=== PATIENT | female | born 1960 | race Caucasian/White ===

== ENCOUNTER 2016-12-02 18:26 | Inpatient (IN) | payer OTHER ==
[~2016-12-02] VITALS: Ht 167.6 cm; Wt 78.7 kg
[~2016-12-02 18:26] MED LIST: AMOX-366 PO; ASPI81TA3 PO; ATOR80TA77 PO; CLOP75TA28 PO; FUR20 PO; GABA-504 PO; GLPZ5T PO; INSU100V7 SUBQ; LACT1CAP44 PO; METO50TA3 PO; NITR0.4T SL; PANT40TA3 PO; SERT100T9 PO; SUCR1ORA PO
[2016-12-02 18:50] VITALS: BP 177/101; PULSE 122; RESP 18; O2SAT 97
--- NOTE | 2016-12-02 19:40 | ED.REPORT ---
HPI-Abd Pain F 40 and Over Date of Service Dec 02, 2016 ED Provider: Eric Capone DO Pt is a 55 y.o. female with an extensive medical hx including DM, CHF, NSTEMI, and stroke who presents to the ED c/o vomiting onset 4 days ago. She reports associated nausea, cough, chest pain, abdominal pain, diarrhea (resolved), and recent weight loss of 14lbs since onset. She denies flank pain and dysuria. She states that she thinks she has an ulcer. Nursing Notes Stated Complaint: NAUSEA/POSS ABT Chief Complaint: Female Abdominal Pain Nursing Notes Reviewed: Yes Allergies: Coded Allergies: insulin detemir (Verified Adverse Reaction, Severe, Nausea,Vomiting, ) Scheduled Aspirin Chew (Aspirin Chew) 81 Mg Tablet 81 MG PO DAILY Atorvastatin Calcium (Atorvastatin Calcium) 80 Mg Tablet 80 MG PO HS Furosemide (Furosemide) 20 Mg Tab 20 MG PO QAM Gabapentin (Gabapentin) 400 Mg Capsule 400 MG PO BID Glipizide (Glipizide) 5 Mg Tablet 5 MG PO BID Insulin Glargine (Lantus U100 Insulin Vial) 100 Unit/Ml Vial 15 UNIT SUBQ HS Ranitidine (Zantac) 150 Mg Tablet 150 MG PO BID Sertraline HCl (Sertraline) 100 Mg Tablet 150 MG PO QPM General Time Seen by MD: 19:39 Chief Complaint Vomiting moderate Hx Obtained From: Patient Arrived By: Walk-in Sudden in Onset?: Yes Onset Occurred: 4 days ago Symptom Duration: Since onset Location: : Diffuse Quality: Painful Severity: Current: Moderate Past Medical History Past Medical History Notes: Hospitalized 08/16/15 to 08/18/15: Chest pain in patient with history of CAD, s/p CARLA placement June 2015 - Troponin neg x2 - Stress test 08/16/2015; unremarkable; no evidence of ST-T changes, ischemia, or wall motion abnormalities - Tele monitoring; no events Past Medical History Peripheral neuropathy NSTEMI CVA- 2006 (March and August) DM2 insulin dependent - history of KDA depression/anxiety insomnia Reports: Congestive heart failure, Coronary artery disease, GERD, Hyperlipidemia , Hypertension, Stroke Reports: Depression, Renal failure Past Surgical History Cardiac Catheterization Hysterectomy R knee- arthroplasty Smoking History Former Smoker Social History Patient quit smoking cigarretes 1.5 years ago. She continues to smoke marijuana. Alcohol Use: Denies alcohol use Other Social History: Good social support, , Local resident Ambulatory Status Independent Review of Systems Respiratory: Reports: Non-productive cough Cardiovascular: Reports: Chest pain GI: Reports: Abdominal pain, Diarrhea, Nausea, Vomiting Female: Denies: Dysuria, Flank pain Complete sys rev & neg: except as marked. Endocrine: Reports: Weight loss Physical Exam Vital Signs Vital Signs (First) Date Time Temp Pulse Resp B/P Pulse Ox O2 Delivery O2 Flow Rate FiO2 12/02/16 18:50 36.3 122 18 177/101 97 Room Air Initial VS: Reviewed Head / Eyes: Atraumatic, Normocephalic Extremities: Vascular intact, Neuro intact Skin: Warm, Dry, No cyanosis Neurologic: Alert, Oriented, Nonfocal Psychiatric: Mood/affect normal, Behavior normal, Normal thought content General/Constitutional: Awake, Alert, Not toxic appearing Appearance / Presentation: Positive: Obese, Uncomfortable Mildly tremulous Respiratory / Chest: Atraumatic, Breath sounds NL, Breath sounds = bilat, No respiratory distress Cardiovascular: Regular rhythm, Heart sounds NL, Peripheral circulation NL Heart Rate / Rhythm: Positive: Tachycardia Abdomen: Atraumatic, Soft, No distention Tenderness/Guarding/Rebound: Positive: Tender diffuse Back: Atraumatic Interpretation & Diagnostics Lab Results Interpretation Result Diagram: 12/03/16 0415 12/03/16 0725 Test 12/02/16 19:22 12/02/16 20:50 12/02/16 21:48 Prothrombin Time 11.4sec (8.1-12.5) Prothromb Time International Ratio 1.06ratio D-Dimer 0.5mg/L (<0.50) Hemoglobin A1c 14.0% (4.8-5.6) Lactic Acid Level 2.0mmol/L (0.4-2.0) Magnesium Level 2.5mg/dL (1.6-2.6) Total Bilirubin 0.5mg/dL (0.0-1.2) Aspartate Amino Transf (AST/SGOT) 32U/L (0-50) Alanine Aminotransferase (ALT/SGPT) 28U/L (0-32) Alkaline Phosphatase 143U/L (25-150) Total Protein 8.4g/dL (6.4-8.4) Albumin 4.3g/dL (3.4-5.0) Lipase 26U/L (13-60) Thyroid Stimulating Hormone (TSH) 0.180uIU/mL (0.450-4.500) Ketones Positive (Negative) Urine Ketones Positivemg/dL (NEGATIVE) Hold Urine Received (Received) Point of Care Testing: Troponin elevated General Lab Results Interp 1: CBC - leukocytosis General Lab Results Interp 2: D-Dimer normal ECG Interpretation ECG Interpretation: Normal ST segment changes Time: 18:26 Interpreted by: ED physician Normal ECG Interpretation: Normal sinus rhythm Rhythm / Conduction: Tachycardia (rate of 120) CT Chest Interpretation IMPRESSION: 1. No acute pulmonary process. No evidence of pulmonary embolism. Dictated by: Donna Diamond M.D. on 12/02/2016 at 21:47 Approved by: Donna Diamond M.D. on 12/02/2016 at 21:49 CT Abd / Pelvis Interpretation IMPRESSION: 1. Diverticulosis. 2. Marked prominence lower uterine segment extending to the cervix. Mass lesion cannot be excluded. It is noted that appearance is similar, although slightly more prominent when compared to 05/04/16. Pelvic ultrasound may be obtained if clinically indicated. Dictated by: Donna Diamond M.D. on 12/02/2016 at 21:43 Approved by: Donna Diamond M.D. on 12/02/2016 at 21:46 Re-Eval/Medical Decision Med Decision/Clinical Course 55-year-old diabetic presents with abdominal pain. She is found to have non- STEMI, early diabetic ketoacidosis. CT of her got did not really show anything other than pelvic abnormalities and will need follow-up. Certainly no emergent surgical disease identified. PE study was negative as well. She is treated with fluids and insulin and beta collin. I consulted with cardiology and he recommended holding on the heparin for now. They recommended that we treat the underlying metabolic abnormalities and consider cardiology consultation if her troponins trend up. She was admitted to the progressive care unit in stable condition. Source of Hx: Old records Re-Evaluation/Progress : Time of Eval: 20:57 Re-Evaluation/Progress Note: Pt rechecked. Discussed lab results and plan for admit, pt understands and agrees with plan. Consultation #1: Referral / Consult Name: Philomena Brown MD Consulted With: Cardiology Call Returned at: 21:36 Note: Consulted with Dr. Brown, Cardiology. Her recommends pt not be given Heparin. Consultation #2: Referral / Consult Name: Jose Angel Cruz MD Call Returned at: 21:44 Lead Housekeeper: Will see patient, Agrees with eval, Agrees with plan, Accepts admit Note: Discussed pt condition and consult with Dr. Brown. Accepts admit. Counseled Regarding: Diagnosis, Lab results, Need for admission Discharge & Departure Primary Impression: Diabetic ketoacidosis Diabetes mellitus type: type 2 Diabetes mellitus complication detail: without coma Qualified Code: E13.10 - Other specified diabetes mellitus with ketoacidosis without coma Additional Impression: NSTEMI (non-ST elevated myocardial infarction) Disposition: ADMITTED TO HOSPITAL Discharge Condition All VS Reviewed: Yes Condition: Stable Referrals: Brigitte Nelson MD (PCP) Crit Care Except Billable Proc Time Spent: 30-74 minutes Services Performed: Patient management by me, Time spent at bedside, Reviewing test results, Reviewing imaging, Discussing patient care, Documentation in record Scribe Attestation Portions of this note were transcribed by Vidya Villatoro. I, Dr. Capone personally performed the history, physical exam and medical decision-making; I reviewed and confirmed the accuracy of the information in the transcribed note. Signed by : Ruperto Ruth, 12/02/16 and 2300. copies to: Brigitte Nelson MD, Todd P DO Dec 02, 2016 19:40 VIDYA VILLATORO Dec 02, 2016 19:46 Albumin 4.3g/dL (3.4-5.0) Lipase 26U/L (13-60) Thyroid Stimulating Hormone (TSH) 0.180uIU/mL (0.450-4.500) Troponin T 0.050ug/L (0.0-0.011) Ketones Positive (Negative) Hold Urine Received (Received) Point of Care Testing: Troponin elevated General Lab Results Interp 1: CBC - leukocytosis General Lab Results Interp 2: D-Dimer normal ECG Interpretation ECG Interpretation: Normal ST segment changes Time: 18:26 Interpreted by: ED physician Normal ECG Interpretation: Normal sinus rhythm Rhythm / Conduction: Tachycardia (rate of 120) CT Chest Interpretation IMPRESSION: 1. No acute pulmonary process. No evidence of pulmonary embolism. Dictated by: Donna Diamond M.D. on 12/02/2016 at 21:47 Approved by: Donna Diamond M.D. on 12/02/2016 at 21:49 CT Abd / Pelvis Interpretation IMPRESSION: 1. Diverticulosis. 2. Marked prominence lower uterine segment extending to the cervix. Mass lesion cannot be excluded. It is noted that appearance is similar, although slightly more prominent when compared to 05/04/16. Pelvic ultrasound may be obtained if clinically indicated. Dictated by: Donna Diamond M.D. on 12/02/2016 at 21:43 Approved by: Donna Diamond M.D. on 12/02/2016 at 21:46 Re-Eval/Medical Decision Source of Hx: Old records Re-Evaluation/Progress : Time of Eval: 20:57 Re-Evaluation/Progress Note: Pt rechecked. Discussed lab results and plan for admit, pt understands and agrees with plan. Consultation #1: Referral / Consult Name: Philomena Brown MD Consulted With: Cardiology Call Returned at: 21:36 Note: Consulted with Dr. Brown, Cardiology. Her recommends pt not be given Heparin. Consultation #2: Referral / Consult Name: Jose Angel Cruz MD Call Returned at: 21:44 Lead Housekeeper: Will see patient, Agrees with eval, Agrees with plan, Accepts admit Note: Discussed pt condition and consult with Dr. Brown. Accepts admit. Counseled Regarding: Diagnosis, Lab results, Need for admission Discharge & Departure Primary Impression: Diabetic ketoacidosis Diabetes mellitus type: type 2 Diabetes mellitus complication detail: without coma Qualified Code: E13.10 - Other specified diabetes mellitus with ketoacidosis without coma Disposition: ADMITTED TO HOSPITAL Discharge Condition All VS Reviewed: Yes Condition: Stable Referrals: Brigitte Nelson MD (PCP) Crit Care Except Billable Proc Time Spent: 30-74 minutes Services Performed: Patient management by me, Time spent at bedside, Reviewing test results, Reviewing imaging, Discussing patient care, Documentation in record Scribe Attestation Portions of this note were transcribed by Vidya Villatoro. I, Dr. Capone personally performed the history, physical exam and medical decision-making; I reviewed and confirmed the accuracy of the information in the transcribed note. Signed by : Ruperto Ruth, 12/02/16 and 2300. copies to: Brigitte Nelson MD, Todd P DO Dec 02, 2016 19:40 VIDYA VILLATORO Dec 02, 2016 19:46
[2016-12-02 19:44] LABS: BASOPHILS % (AUTO) 0.1 % (0-3); EOSINOPHILS % (AUTO) 0.1 % (0-5); MONOCYTES % (AUTO) 7.4 % (4-12); Mean Corpuscular Hemoglobin 26.6 pg (27.0-35.0); Mean Corpuscular Volume 77.7 fL (81-100); NEUTROPHILS % (AUTO) 83.8 % (40-74); Platelet Count 377 bil/L (150-400)
[2016-12-02] MEDS ORDERED: 0.9% Sodium Chloride 1,000 ML IV SCH (19:50)
[2016-12-02] MEDS: Ondansetron 2 mg/mL 2 mL Inj IVPUSH PRN ×2 (20:24→20:26)
[2016-12-02 20:29] LABS: Magnesium 2.5 mg/dL (1.6-2.6)
[2016-12-02] MEDS ORDERED: HYDROmorphone 0.5 mg/0.5 mL iSecure Syringe IVPUSH PRN (20:40)
[2016-12-02] MEDS ORDERED: Insulin Human REGular Inj 100 UNIT in 0.9% Sodium Chloride-Pha MIX 100 ML IV SCH ×2 (21:31→22:27)
[2016-12-02] MEDS ORDERED: Heparin 5,000 Unit/mL Inj IVPUSH ONE (21:35)
[2016-12-02] MEDS ORDERED: Nitroglycerin 2% 1 Gm Ointment TOPICAL ONE (21:35)
[2016-12-02] MEDS ORDERED: MeTOProlol 1 mg/mL 5 mL Inj IVPUSH SCH (21:35)
[2016-12-02] MEDS ORDERED: Heparin 25K Unit/500mL 0.45 NS 25,000 UNIT in IV Premix 1 EACH IV SCH (21:35)
[2016-12-02] MEDS ORDERED: Heparin 5,000 Unit/mL Inj IVPUSH PRN ×2 (21:35→22:00)
--- NOTE | 2016-12-02 21:48 | DRSVH ---
PROCEDURE: CT ABDOMEN AND PELVIS WITH CONTRAST ([id number]) INDICATIONS: chest pain, abd. pain, nonSTEMI,tachycardia TECHNIQUE: After the administration of intravenous contrast, 5 mm thick sections acquired from the diaphragm to the symphysis. 5 mm coronal and sagittal reformats were acquired. For radiation dose reduction, the following was used: automated exposure control, adjustment of mA and/or kV according to patient yumiko valverde COMPARISON: [facility], CT, CT ABD PELVIS WO CON, 05/04/2016, 11:54. FINDINGS: Image quality: Excellent. ABDOMEN: Lung bases: Lung bases are clear. Heart size is normal. Solid organs: Liver and spleen are normal in size and enhancement. Gallbladder is unremarkable. Bi liary system is non dilated. Pancreas enhances normally. No adrenal nodules. Kidneys demonstrate n ormal size and enhancement, without hydronephrosis. Small focal areas of low-attenuation are present within the kidneys bilaterally, unchanged, suggestive of cysts. Peritoneum and bowel: Bowel loops demonstrate normal wall thickness and caliber. No free fluid or a ir. Scattered diverticula are present without visualized inflammatory change. Nodes and vessels: No retroperitoneal or mesenteric adenopathy by size criteria. Aorta and inferior vena cava are normal in size. Miscellaneous: No ventral hernias. PELVIS: Genitourinary: Bladder wall thickness is normal. There is prominent fullness of the lower uterine s egment extending to the cervix. Miscellaneous: No inguinal hernias or adenopathy. Bones: No suspicious bony lesions. No vertebral body compression fractures. IMPRESSION: 1. Diverticulosis. 2. Marked prominence lower uterine segment extending to the cervix. Mass lesion cannot be excluded. I t is noted that appearance is similar, although slightly more prominent when compared to 05/04/16. Pel nathan ultrasound may be obtained if clinically indicated. Dictated by: Donna Diamond M.D. on 12/02/2016 at 21:43 Approved by: Donna Diamond M.D. on 12/02/2016 at 21:46
--- NOTE | 2016-12-02 21:50 | DRSVH ---
PROCEDURE: CT ANGIO CHEST PULMONARY EMBOLISM ([id number]) INDICATIONS: chest pain, abd. pain, nonSTEMI,tachycardia TECHNIQUE: After the administration of intravenous contrast, 2 mm thick sections acquired from the pulmonary api kirill to the posterior costophrenic angles. 3-dimensional maximum intensity projection (MIP) coronal a nd sagittal reformats were then acquired through the thorax. For radiation dose reduction, the follo wing was used: automated exposure control, adjustment of mA and/or kV according to patient size. COMPARISON: [facility], CT, CT CHEST WO CON, 08/16/2016, 9:39. FINDINGS: Image quality: Excellent. Pulmonary arteries: Pulmonary arteries are normal in size, and demonstrate no intraluminal filling d efects to suggest central pulmonary embolism. Lungs and pleura: Lungs are clear. No pleural effusions or pneumothorax. Central and peripheral ai rways are patent. Mediastinum: Heart size is normal, without pericardial effusion. No mediastinal or hilar adenopathy . Thoracic aorta is normal in caliber and enhancement. Esophagus is normal in caliber, without hiat al hernia. Bones and chest wall: No suspicious bony lesions. Ribs and thoracic spine appear intact throughout. Thyroid gland is unremarkable. No axillary or supraclavicular adenopathy. Abdomen: Visualized upper abdominal solid organs appear normal in the early arterial phase of enhanc ement. IMPRESSION: 1. No acute pulmonary process. No evidence of pulmonary embolism. Dictated by: Donna Diamond M.D. on 12/02/2016 at 21:47 Approved by: Donna Diamond M.D. on 12/02/2016 at 21:49
[2016-12-02] MEDS: 0.9% Sodium Chloride 1,000 ML IV SCH (21:57)
[2016-12-02] MEDS ORDERED: Atropine 1 mg/10 mL (Code) Syringe IVPUSH PRN (22:00)
[2016-12-02] MEDS ORDERED: Senna-Docusate 8.6-50 mg Tablet PO PRN (22:00)
[2016-12-02] MEDS ORDERED: Polyethylene Glycol (PEG) 17 Gm Powder PO PRN (22:00)
[2016-12-02] MEDS ORDERED: Alum-Mag Hydrox-Simeth 30 mL Suspension PO PRN (22:00)
[2016-12-02 22:13] LABS: INR 1.06 ratio
--- NOTE | 2016-12-02 22:51 | PCM.HPMED ---
Subjective Date of Service Dec 02, 2016 Primary Provider: Admitting Physician: Primary Care Physician: Brigitte Nelson MD Attending Physician: Chief Complaint: Abdominal Pain Chest pain Nausea Vomiting Diarrhea History of Present Illness: Patient is a 55 y.o F with medical history of DM insulin dependent, CHF, NSTEM s /p cardiac cath with stenting x2, and stroke with residual visual deficit, GERD (last EGD "years ago"), HTN. She presented to the Ed with 4 days of abdominal pain, nausea, vomiting, and 1 day history of chest pain. Patient stated that symptoms began with abdominal pain described as nausea and "feels like an ulcer ", localized to left upper quadrant, associated with vomiting without blood, diarrhea without blood or pus that has resolved one day ago, 14 lb weight loss, subjective fever, chills, generalized weakness (patient normally able to ambulate with cane). Patient denies blood in stool, mucus in stool, pain with BM , dysuria.Patient reported a friend has been sick with similar symptoms. Diarrhea improved with antidiarrheal and nausea improved with zofran in ED. Patient stated that chest pain began suddenly yesterday and continued onto today prompting ED visit. Patient describe pain as racing heart, localized to her left breast non radiating, associated with SOB, orthopnea, PND. She stated that chest pain is similar to episode when she had stents placed. Patient denies chest pressure, syncope, change in vision from baseline, headache. Administrative Support Technician Dr. Scott Review of Systems: A comprehensive review of systems was conducted with the patient and found to be negative except as above in the History of Present Illness. Allergies Coded Allergies: insulin detemir (Verified Adverse Reaction, Severe, Nausea,Vomiting, ) Home Medications Aspirin Chew (Aspirin Chew) 81 Mg Tablet 81 MG PO DAILY Atorvastatin Calcium (Atorvastatin Calcium) 80 Mg Tablet 80 MG PO HS Clopidogrel (Clopidogrel) 75 Mg Tablet 75 MG PO DAILY Furosemide (Furosemide) 20 Mg Tab 20 MG PO QAM Gabapentin (Gabapentin) 400 Mg Capsule 400 MG PO BIDWM with breakfast and lunch Glipizide (Glipizide) 5 Mg Tablet 5 MG PO BID Insulin Glargine (Lantus U100 Insulin Vial) 100 Unit/Ml Vial 15 UNIT SUBQ HS Lactobacillus Acidophilus (Acidophilus Lactobacillus) 1 Each Capsule 1 EACH PO BID Metoprolol Tartrate (Metoprolol Tartrate) 50 Mg Tablet 100 MG PO BID stop coreg Pantoprazole DR (Pantoprazole DR) 40 Mg Tablet.dr 40 MG PO BID Sertraline HCl (Sertraline) 100 Mg Tablet 150 MG PO QPM Sucralfate (Sucralfate) 1 Gm/10 Ml Oral.susp 1,000 MG PO QID Nitroglycerin SL (Nitrostat) 0.4 Mg Tab.subl 0.4 MG SL Q5MIN PRN PRN For Chest Pain [facility] Hospitalizations Hospitalized 08/16/15 to 08/18/15: Chest pain in patient with history of CAD, s/p CARLA placement June 2015 - Troponin neg x2 - Stress test 08/16/2015; unremarkable; no evidence of ST-T changes, ischemia, or wall motion abnormalities - Tele monitoring; no events Past medical Illnesses Peripheral neuropathy NSTEMI CVA- 2006 (March and August) DM2 insulin dependent - history of KDA depression/anxiety insomnia Reports: Congestive heart failure, Coronary artery disease, GERD, Hyperlipidemia , Hypertension, Stroke Reports: Depression, Renal failure Surgical History Cardiac Catheterization Hysterectomy R knee- arthroplasty Family History Patient is adopted and does not know medical history of biological relatives Social History Hx Alcohol Use: No Hx Substance Use: Yes (Marijuana- ) Smoking Status: Former Smoker (Quit three years ago with 60 pack year history) Exam Vital Signs Vital Sign - Last Date Time Temp Pulse Resp B/P Pulse Ox O2 Delivery O2 Flow Rate FiO2 12/02/16 18:50 36.3 122 18 177/101 97 Room Air Exam General: Patient is in moderate pain localized to abdomen, well-developed, well- nourished, appropriately interactive HEENT: Normocephalic, atraumatic. External ears without defect. EMOI deficit at baseline from stroke. Pupils equal, round, and reactive to light. Anicteric sclerae, moist conjunctivae, and no lid lag. Oropharynx free of erythema and cobble stoning with dry mucosa. Neck: Supple with full range of motion. No jugular venous distension. No bruits. No lymphadenopathy or thyromegaly. Cardiovascular: Tachycardic and rhythm with no murmurs, rubs, or gallops appreciated Pulmonary: bilateral expiratory wheezes, with no crackles,, or rhonchi. Normal respiratory effort with no use of accessory muscles. Abdomen: Bowel tones present. Soft, Diffuse tenderness with prominent tenderness over LUQ and LLQ, nondistended. No hepatosplenomegaly or masses appreciated. Back: no tenderness, no CVA tenderness Extremities: No clubbing, cyanosis, edema, or lymphadenopathy appreciated. Skin: Normal temperature, poor turgor, and texture; no rash, ulcers, or subcutaneous nodules appreciated. Neurological: Cranial nerves grossly intact to patient's baseline. Visual field deficit loss of peripheral vision and depth perception noted with overshooting/undershooting finger to nose. Normal muscle strength, tone, and bulk. Reflexes, coordination limited by visual field deficit, and sensory function within normal limits. mild gait impairment. Psychiatric: Normal mood and affect. Alert and oriented to person, place, and time. Lab and Diagnostics Result Diagram: 12/02/16192112/02/161921 X-Rays, CTs and MRIs CT Chest IMPRESSION: 1. No acute pulmonary process. No evidence of pulmonary embolism. Dictated by: Donna Diamond M.D. on 12/02/2016 at 21:47 Approved by: Donna Diamond M.D. on 12/02/2016 at 21:49 CT Abd / Pelvis IMPRESSION: 1. Diverticulosis. 2. Marked prominence lower uterine segment extending to the cervix. Mass lesion cannot be excluded. It is noted that appearance is similar, although slightly more prominent when compared to 05/04/16. Pelvic ultrasound may be obtained if clinically indicated. Dictated by: Donna Diamond M.D. on 12/02/2016 at 21:43 Approved by: Donna Diamond M.D. on 12/02/2016 at 21:46 12-lead ECG Rate 118 Sinus tachycardia Normal [place] LVH Anterior Q waves Multiple PACs in all leads No significant change from prior EKG Assessment & Plan Patient is a 55 y.o F with medical history of DM insulin dependent, CHF, NSTEM s /p cardiac cath with stenting x2, and stroke with residual visual deficit, GERD (last EGD "years ago"), HTN. Admitted for treatment of Abdominal pain, nausea, vomiting, NSTEMI, SREEDHAR 1. NSTEMI, acute - Patient at time of admit tachycardic, hypertensive, elevated troponin, c/o chest pain left sided, SOB, past history of cardiac stent, DMII, 60 pack year smoking history -ALEXA score 4 - Continue ASA 81 mg PO QD - Continue Plavix 75 mg PO QD - Continue home dose metoprolol - Start Lorsartan 5 mg BID - Start Atorvastatin 40 mg PO HS - Start Heparin Drip - Continue Tele 2. Hyperglycemic Hyperosmolar state, NDKA, acute - Blood glucose at admission 600, RR 18, + ketones, corrected NA 145, AG 32, LA 2.0 - Likely presentation of Hyperglycemic hyperosmolar state, with Lactic acidosis rather than DKA as patient does not clinically present with stigmata of DKA. - Continue IVF NS @ 100 mls/hr given 1 L bolus in ED, free water deficit calculated negative 1.6 L - Start Insulin drip per protocol, NON-DKA - ABG ordered, pending - Urine Ketones ordered - Once blood sugar normalize and AG closes will restart Lantus 8 units with medium correctional insulin scale - NPO after insulin drip started 3. Abdominal pain with nausea and vomiting - At time of exam patient is afebrile, active nauseous and dry heaving, WCT 14.8 - Abdominal/Pelvis CT showed uncertain lesion in uterus at cervix boarder - Abdominal US ordered - Continue IVF as above #2 - Zofran for NS - Stool studies ordered - Viral PCR ordered to r/o viral syndrome from URI 4. Acute on chronic Kidney disease - Prior history of Kidney disease - likely prerenal due to dehydration from vomiting and diarrhea - continue IVF NS as above #2 -UA ordered - Monitor I/O Chronic Conditions Peripheral neuropathy -Continue Gabapentin CVA- 2006 (March and August), presumed stable - Continue to monitor DM2 insulin dependent - history of DKA - Start Insulin drip as above #2 - Restart Lantus as above #2 depression/anxiety - Continue home medication insomnia - Melatonin 5 MG PO HS PRN Congestive heart failure - ECHO ordered Hypertension - Continue home med - Start Lisinopril as above #1 Hyperlipidemia, , Stroke GERD, - Protonix 40 mg IV QD Gi prophylaxis Coronary artery disease - Manage as above #1 CODE STATUS: DVT prophylaxis: Heparin Drip GI prophylaxis: Protonix Patient is admitted under inpatient status with expected length of stay greater than 2 midnights due to severity of presenting symptoms, risk of adverse event, and complexity of treatment plan. Attending Statement The patient was seen and examined together with Dr. Stover on 12/02 and I agree with the history, exam and plan as outlined in the note above. KIAN STOVER DO Dec 02, 2016 22:51 Jose Angel Cruz MD Dec 03, 2016 00:50
--- NOTE | 2016-12-02 22:59 | ABG ---
DateTimeAnalyzed 22:56:00 -_ pH ____7.349 - 7.350 7.450 pCO2 ___47.7__ -mmHg 35.0 45.0 pO2 ___67.1__ -mmHg 69.0 116 HCO3- ___25.6__ -mmol/L 22.0 26.0 ABE ____0.0__ -mmol/L -2.0 2.0 tHb ___13.2__ -g/dL O2Hb ___90.4__ -% COHb ____0.9__ -% MetHb ____1.0__ -% sO2 ___92.2__ -% FIO2 ___21.0__ -% Drawn By AF - Date/Time Notified____ 22:58:00 -_ Notified By ___Dr. Beia - B 762 -mmHg tO2 ___16.8__ -Vol% Dhruv test _Positive -
[2016-12-02 23:00] VITALS: BP 140/95; PULSE 115; RESP 16; O2SAT 95
[2016-12-02 23:12] VITALS: BP 160/91; PULSE 120; RESP 20; O2SAT 99
[2016-12-02] MEDS: Heparin 25K Unit/500mL 0.45 NS 25,000 UNIT in IV Premix 1 EACH IV SCH (23:12)
[2016-12-02] MEDS ORDERED: Pantoprazole 4 mg/mL 10 mL Inj IVPUSH ONE (23:25)
[2016-12-02] MEDS ORDERED: MeTOProlol 1 mg/mL 5 mL Inj IVPUSH PRN (23:28)
[2016-12-03] VITALS (12 sets, daily range): BP systolic 149–189; BP diastolic 88–105; PULSE 65–119; RESP 16–20; O2SAT 95–99
[2016-12-03] MEDS ORDERED: Sodium Chloride LOK Flush 10 mL Syringe IVFLUSH SCH (00:30)
[2016-12-03] MEDS: Sodium Chloride LOK Flush 10 mL Syringe IVFLUSH SCH ×3 (00:30→16:50)
[2016-12-03] MEDS: Ondansetron 2 mg/mL 2 mL Inj IVPUSH PRN ×3 (00:41→12:00)
[2016-12-03] MEDS: MetoCLOpramide 5 mg/mL 2 mL Inj IVPUSH PRN (03:38)
[2016-12-03] MEDS: Heparin 25K Unit/500mL 0.45 NS 25,000 UNIT in IV Premix 1 EACH IV SCH (04:25)
[2016-12-03 04:45] LABS: BASOPHILS % (AUTO) 0.1 % (0-3); EOSINOPHILS % (AUTO) 0 % (0-5); Mean Corpuscular Hemoglobin 26.5 pg (27.0-35.0); Mean Corpuscular Volume 79.3 fL (81-100); NEUTROPHILS % (AUTO) 69.6 % (40-74); Platelet Count 313 bil/L (150-400)
[2016-12-03 05:18] LABS: TROPONIN T 0.065 ug/L (0.0-0.011)
[2016-12-03] MEDS ORDERED: Glucose 40% Oral Gel 15 Gm Tube PO PRN (05:25)
[2016-12-03] MEDS ORDERED: Insulin GLARgine 100 Unit/mL Syringe SUBQ ONE (05:25)
[2016-12-03] MEDS ORDERED: 0.45% Sodium Chloride 250 ML in IV Bag 1 EACH IV ONE (05:30)
[2016-12-03] MEDS: Sucralfate 100 mg/mL 10 mL Suspension PO SCH ×4 (06:20→21:29)
--- NOTE | 2016-12-03 07:00 | NUR ---
Admit Pt arrived to [facility] RM 2008 from ED. PT able to self transfer from [facility] to to urinate. Pt steady on feet but states weakness. Pt started on NON DKA insulin gtt and continued on floor blood sugars check Q1 hour per protocol. No c/o CP or SOB. PT also started on Heparin gtt. Pt continues to have intermittent nausea and PRN medications given and effective for a time. VSS and Tele ST 100's
[2016-12-03] MEDS: Insulin LISPRO 300 Unit/3 mL Inj SUBQ SCH ×5 (08:00→21:27)
[2016-12-03] MEDS: 0.9% Sodium Chloride 1,000 ML IV SCH ×2 (10:27→21:38)
--- NOTE | 2016-12-03 13:41 | NUR ---
Social Work: Screening Data: Pt is a 55 y/o female admitted for non stemi hyperglycemia. Pt's PCP is Dr Nelson. Pt's insurance is listed as self pay. EMR reviewed, readmit score is 3. APARTMENT PROPERTY MANAGER met with pt at bedside, offered self pay resources. Pt states she has insurance through [employer] but that her will bring her card in. APARTMENT PROPERTY MANAGER inquired about AD, pt states she henry not have one but accepted info from APARTMENT PROPERTY MANAGER. No d/c planning needs identified at this time. APARTMENT PROPERTY MANAGER will continue to follow if needs arise. Assessment: Pt who is independent at baseline. Plan: Pt will d/c home via POV when medically stable. No d/c planning needs identified at this time. APARTMENT PROPERTY MANAGER will continue to follow if needs arise. CYNDY Gaxiola
[2016-12-03] MEDS ORDERED: RANI150T11 PO (13:50)
--- NOTE | 2016-12-03 14:14 | DRSVH ---
[facility] [address] [place] [address] Echocardiogram Report Name: LUI HI EStudy Date: Height: 66 in Hospital Exam Location: [facility] Weight: 166 lb Gender: Female BSA: 1.8 m2 : 1960 Age: 55 yrs BP: 149/88 mmHg Reason For Study: Chest pain Ordering Physician: HOSPITALIST [facility] Performed By: [facility] Referring Physician: KIAN STOVER Interpretation Summary Left ventricular wall thickness is mildly increased. Left ventricular systolic function is normal. The ejection fraction is estimated to be 55-60%. Compared to the prior exam, left ventricular function is moderately improved. There is moderate to severe hypokinesis of the basal inferior, basal inferolateral and mild hypokinesis along basal to mid anterolateral segments. The E/A ratio is reversed with an elevated E/E', suggesting impaired early relaxation of the left ventricle with possible increased filling pressures. The right ventricle is normal in size and function. Pulmonary artery pressures cannot be estimated because of the lack of a measurable TR jet velocity. The left atrium is mildly dilated. The right atrium grossly appears normal in size. There is no significant valvular heart disease. MR and TR have decreased since prior study. The aortic root is normal size. Procedure: A two-dimensional transthoracic echocardiogram with color flow and Doppler was performed. The study quality was technically adequate. A contrast injection of Definity was performed to improve assessment of LV function. Comparison is made with the echocardiogram of 05/03/16. The patient was in normal sinus rhythm during the exam. Left Ventricle: The left ventricle is normal in size. Left ventricular wall thickness is mildly increased. Left ventricular systolic function is normal. The ejection fraction is estimated to be 55-60%. Compared to the prior exam, left ventricular function is moderately improved. There is moderate to severe hypokinesis of the basal inferior, basal inferolateral and mild hypokinesis along basal to mid anterolateral segments. The E/A ratio is reversed with an elevated E/E', suggesting impaired early relaxation of the left ventricle with possible increased filling pressures. Right Ventricle: The right ventricle is normal in size and function. Atria: The left atrium is mildly dilated. The right atrium grossly appears normal in size. The interatrial septum is intact with no evidence for an atrial septal defect. Mitral Valve: The mitral valve leaflets appear borderline thickened, but open well. There is mild mitral annular calcification. There is mild mitral regurgitation. Aortic Valve: The aortic valve is grossly normal. There is no aortic valve stenosis. No aortic regurgitation is present. Tricuspid Valve: The tricuspid valve is not well visualized, but is grossly normal. Pulmonary artery pressures cannot be estimated because of the lack of a measurable TR jet velocity. Pulmonic Valve: The pulmonic valve is not well visualized. There is no significant valvular heart disease. Great Vessels: The aortic root is normal size. The dimensions of the ascending aorta are normal. The pulmonary artery is not well visualized, but is probably normal size. The IVC is of normal diameter and collapses greater than 50% with a sniff. This suggests a low right atrial pressure of 3 mm Hg. Pericardium/ Pleura There is no pericardial effusion. There is no pleural effusion. MMode/2D Measurements & Calculations LVIDd: 4.6 cm IVC diam LVOT diam: 2.0 cm LV richmond. diameter/BSA LVIDs: 4.0 cm : 1.7 cm AoV Openin.6 cm(cm/m^2): 2.5 FS: 13.8 % Ao root diam EPSS: 0.78 cm IVSd: 1.1 cm asc Aorta Diam LVPWd: 0.63 cm Ao Arch Diam (Prox Trans): 3.0 cm LV sys. diameter/BSA (cm/m^2): 2.2 Doppler Measurements & Calculations Ao V2 max: 124.7 cm/secMV E max damian MV E/A: 0.63 PA V2 max Ao max P.2 mmHg : 81.3 cm/sec Med Peak E' Damian : 79.6 cm/sec Ao mean P.9 mmHg MV A max damian PA mean PG LVOT Max Damian : 128.4 cm/sec E/E' med: 27.6 : 1.4 mmHg : 93.3 cm/sec Lat Peak E' Damian TIM(I,D): 2.4 cm E/E' lat: 24.9 sev ratio: 0.80 E/e' average MV dec time: 0.10 sec Ao V2 mean LV V1 max PG PA V2 mean : 78.9 cm/sec : 55.9 cm/sec Ao V2 VTI: 24.1 cm LV V1 VTI: 19.2 cm TIM(V,D): 2.3 cm2 TIM indexed to BSA (cm^2/m^2): 1.3 Reading Physician:TIEN
--- NOTE | 2016-12-03 15:07 | NUR ---
NUTRITION ASSESSMENT: ASSESS: Pt is a 55yo F admitted for NSTEMI. 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 She reports some nausea. Last reported BM was 11/30/16. Pt reported ~14lb wt loss. Per chart review, she has lost ~9kg since last admit in April 2016 (10.7% wt loss [id number] significant). PMHX: DM, CHF, NSTEMI s/p cardiac cath with stenting x2, stroke with residual visual deficit, GERD, chronic Kidney disease, HTN LABS: Reviewed. Na 149, Bun 32, Applications Support Analyst 1.08, Glu 219, Alb 4.3, A1C 14.0 MEDS: Reviewed. lasix, insulin, Zofran GI: some nausea, 0 BM since 11/30/16 (pt reported) SKIN: Rodrigo 20, no issues CURRENT WTS: 75.3kg, BMI 26.8kg/m2, 10.7% wt loss x8 months. DIET: NPO EST. NEEDS: CKD Kcals: 1885-2260g/day (25-30g/kg) Pro: 60-75g/day (.8-1.0g/kg) NUTRITION DIAGNOSIS: 1.) Inadequate oral intake related to decreased ability to consume sufficient energy as evidenced by current NPO status 2.) Altered nutrition related labs related to endocrine dysfunction as evidenced by A1c 14.0 NUTRITION INTERVENTION: 1.) Will continue to monitor NPO status. Recommend advance diet when medically appropriate 2.) Will offer diabetic diet education to pt when appropriate. MONITOR / EVAL: NPO, diet advc, DM ed, labs, GI, POC, nutrition status. Will continue to monitor per moderate nutrition risk guidelines.
--- NOTE | 2016-12-03 18:32 | NUR ---
Hypertension and clear PO intake BP elevated, SBP range 160s to 180s. BP was 189/105 in the late afternoon. Gave 5 mg PRN Metoprolol for SBP >180. Repeat BP 169/90. Pt. asked for some liquids. Clear warm broth and Jello was given with Dr. Gillis's permission. Pt. was able to hold down clear liquids. Nausea was minimal and PRN anti-emetics was not needed. Pt. however declined Neurontin as she was not ready for anything solid and she also stated, "I don't have any nerve pain right now."
[2016-12-03] MEDS ORDERED: ProchlorPERazine 5 mg/mL 2 mL Inj IVPUSH ONE (20:05)
--- NOTE | 2016-12-03 20:32 | PCM.PNMED ---
Subjective Date of Service Dec 03, 2016 Subjective overnight: Patient was admitted on heparin drip for possible instability as well as non-DKA insulin drip for hyperosmolar hyperglycemic nonketotic state. No acute events otherwise noted. Today: The patient states that she has had significant weight loss within the last several months. She attributes some of this to poor diet as she has only been able to keep down apple juice. She admits to not following her diabetic regimen. Exam Vital Signs Vital Sign - Last Date Time Temp Pulse Resp B/P Pulse Ox O2 Delivery O2 Flow Rate FiO2 12/03/16 03:00 36.8 65 16 149/88 99 Room Air Intake and Output 12/02/16 12/02/16 12/03/16 Cumulative From/Thru 15:00 23:00 07:00 12/02/16 18:50 - 12/03/16 05:00 Intake Total 1000 ml 1000 ml Balance 1000 ml 1000 ml Intake IV Total 1000 ml 1000 ml Exam General: Middle-aged female appearing older than her stated age alert and oriented, in no acute distress lying in bed Eyes: Pupils equal, round, and reactive to light. Anicteric sclerae, moist conjunctivae, and no lid lag. Extraocular motion deficit at baseline from stroke. HENT: Normocephalic, atraumatic. External ears without defect. Oropharynx free of erythema and cobble stoning with moist mucosal Neck: Supple with full range of motion. No jugular venous distension. No bruits. No lymphadenopathy or thyromegaly. Cardiovascular: Tachycardic and rhythm with no murmurs, rubs, or gallops appreciated Pulmonary: Clear to auscultation bilaterally without any wheezing rales or rhonchi noted Abdomen: Bowel tones present. Soft, Diffuse tenderness with prominent tenderness over LUQ and LLQ, nondistended. No hepatosplenomegaly or masses appreciated. Extremities: No clubbing, cyanosis, edema, or lymphadenopathy appreciated, pulses intact bilaterally at the radial and dorsalis pedis Skin: Normal temperature, poor turgor, and texture; no rash, ulcers, or subcutaneous nodules appreciated. Neurological: No new focal neurologic deficits at this time, no slurred speech, or new worsening unilateral weakness noted Psychiatric: Normal mood and affect. Alert and oriented to person, place, and time. IVs and Medications Medications Reviewed: Medications were reviewed in detail Lab and Diagnostics Result Diagram: 12/03/16 0415 12/03/16 0415 X-Rays, CTs and MRIs CT Chest IMPRESSION: 1. No acute pulmonary process. No evidence of pulmonary embolism. Dictated by: Donna Diamond M.D. on 12/02/2016 at 21:47 Approved by: Donna Diamond M.D. on 12/02/2016 at 21:49 CT Abd / Pelvis IMPRESSION: 1. Diverticulosis. 2. Marked prominence lower uterine segment extending to the cervix. Mass lesion cannot be excluded. It is noted that appearance is similar, although slightly more prominent when compared to 05/04/16. Pelvic ultrasound may be obtained if clinically indicated. Dictated by: Donna Diamond M.D. on 12/02/2016 at 21:43 Approved by: Donna Diamond M.D. on 12/02/2016 at 21:46 12-lead ECG Rate 118 Sinus tachycardia Normal [place] LVH Anterior Q waves Multiple PACs in all leads No significant change from prior EKG Cardiac Echo Impressions Echocardiogram Report Interpretation Summary Left ventricular wall thickness is mildly increased. Left ventricular systolic function is normal. The ejection fraction is estimated to be 55-60%. Compared to the prior exam, left ventricular function is moderately improved. There is moderate to severe hypokinesis of the basal inferior, basal inferolateral and mild hypokinesis along basal to mid anterolateral segments. The E/A ratio is reversed with an elevated E/E', suggesting impaired early relaxation of the left ventricle with possible increased filling pressures. The right ventricle is normal in size and function. Pulmonary artery pressures cannot be estimated because of the lack of a measurable TR jet velocity. The left atrium is mildly dilated. The right atrium grossly appears normal in size. There is no significant valvular heart disease. MR and TR have decreased since prior study. The aortic root is normal size. Reading Physician:PM Additional Diagnostics ABG DateTimeAnalyzed 22:56:00 -_ pH ____7.349 - 7.350 7.450 pCO2 ___47.7__ -mmHg 35.0 45.0 pO2 ___67.1__ -mmHg 69.0 116 HCO3- ___25.6__ -mmol/L 22.0 26.0 Assessment & Plan Patient is a 55 y.o F with medical history of DM insulin dependent, CHF, NSTEM s /p cardiac cath with stenting x2, and stroke with residual visual deficit, GERD (last EGD "years ago"), HTN. Admitted for treatment of Abdominal pain, nausea, vomiting, NSTEMI, SREEDHAR. Hospital Day 1 1. unlikely non-ST segment elevation myocardial infarction, acute, present on admission - Patient at time of admit tachycardic, hypertensive, elevated troponin, c/o chest pain left sided, SOB, past history of cardiac stent, DMII, 60 pack year smoking history - Patient is an uncontrolled diabetic with chronic kidney disease and likely chronic troponin leak - Troponins trended over day of admission showed no significant change consistent with new infarction - echo interpretation shows moderate improvement in ejection fraction since previous echo performed with EF of 55-60%, severe wall motion abnormality noted however - ALEXA score 4 - Continue ASA 81 mg PO QD - Continue Plavix 75 mg PO QD - Continue home dose metoprolol - Consider starting lisinopril 5 mg at resolution of acute kidney injury - Start Atorvastatin 40 mg PO HS - Continue Heparin Drip - Continue Tele 2. Hyperglycemic Hyperosmolar nonketotic state, acute, present on admission - Blood glucose at admission 600, RR 18, + ketones, corrected NA 145, AG 32, LA 2.0 - Likely presentation of Hyperglycemic hyperosmolar state, with Lactic acidosis rather than DKA as patient does not clinically present with stigmata of DKA. - Continue IVF NS @ 100 mls/hr given 1 L bolus in ED, free water deficit calculated negative 1.6 L - Discontinue Insulin drip per protocol, NON-DKA - Urine Ketones positive - Start Lantus 15 units HS with medium correctional insulin scale 3. Diabetic gastroparesis, present on admission, chronic - Abdominal pain with nausea and vomiting - At time of exam patient is afebrile, active nauseous and dry heaving, WCT 14.8 - Abdominal/Pelvis CT showed uncertain lesion in uterus at cervix boarder - Abdominal US ordered - Continue IVF as above #2 - Compazine, Zofran and Reglan for nausea - Stool studies ordered - Viral PCR ordered to r/o viral syndrome from URI 4. Acute kidney injury on chronic Kidney disease, present on admission, - Prior history of Kidney disease - likely prerenal due to dehydration from vomiting and diarrhea - continue IVF NS as above #2 - UA ordered - Monitor I/O 5 Peripheral neuropathy, present on admission, chronic -Continue Gabapentin 6 diabetes mellitus type II insulin dependent, present on admission, chronic - history of DKA - Discontinue Insulin drip as above #2 - Restart Lantus and correction scale lispro as above #2 7 depression and anxiety, present on admission, chronic - Continue home medication 8 insomnia, present on admission, presumed chronic - Melatonin 5 MG PO HS PRN 9. Diastolic Congestive heart failure, present on admission, chronic - Shows poor relaxation - Start AZRA inhibitor once SREEDHAR resolves 10 Hypertension, present on admission, chronic - Continue home med - Consider starting Lisinopril as above #1 11 Hyperlipidemia, present on admission, chronic - Starting statin medication as above 12 gastroesophageal reflux disease, present on admission, chronic - Protonix 40 mg IV DAILY 13 history of cerebrovascular accident, present on admission, chronic - 2006 (March and August), presumed stable - Continue to monitor CODE STATUS: full DVT prophylaxis: Heparin Drip GI prophylaxis: Protonix Patient will likely be discharged within the next few days given constellation of symptoms, most likely diagnosis and possible complications to treatment. Pain Evaluation: Adequate Pain Control GI Prophylaxis: Proton Pump Inhibitor VTE Prophylaxis: Other (heparin drip) Resuscitation Status: CPR: Attempt Resuscitation Time spent greater than 35min Attending Statement The patient was seen and examined together with Dr. Oh on 12/03/16 and I agree with the history, exam and plan as outlined in the note above. Binh Oh DO Dec 03, 2016 07:36 Maggie Hathaway DO Dec 04, 2016 16:12
[2016-12-03] MEDS ORDERED: Insulin GLARgine 100 Unit/mL Syringe SUBQ SCH (21:00)
[2016-12-04] VITALS (9 sets, daily range): BP systolic 131–179; BP diastolic 56–107; PULSE 74–116; RESP 16–18; O2SAT 95–99
[2016-12-04] MEDS: Sodium Chloride LOK Flush 10 mL Syringe IVFLUSH SCH ×4 (00:13→21:29)
[2016-12-04] MEDS: hydrALAZINE 20 mg/mL Inj IV PRN ×2 (00:15→23:27)
[2016-12-04] MEDS: Heparin 25K Unit/500mL 0.45 NS 25,000 UNIT in IV Premix 1 EACH IV SCH (02:26)
--- NOTE | 2016-12-04 04:17 | NUR ---
hypertension MD stopped beta blockers PO and IV for tonight r/t passable mibi in morning, PRN IV hydralazine for SBP greater then 160 gave 10mg IV x1 with good results.
[2016-12-04 04:27] LABS: BASOPHILS % (AUTO) 0.1 % (0-3); EOSINOPHILS % (AUTO) 0.1 % (0-5); MONOCYTES % (AUTO) 9.5 % (4-12); Mean Corpuscular Hemoglobin 26.5 pg (27.0-35.0); NEUTROPHILS % (AUTO) 71.9 % (40-74); Platelet Count 281 bil/L (150-400)
[2016-12-04] MEDS ORDERED: Potassium Chloride 20 mEq SR Tablet PO ONE ×2 (05:30→14:35)
[2016-12-04] MEDS: Sucralfate 100 mg/mL 10 mL Suspension PO SCH ×4 (05:48→20:43)
--- NOTE | 2016-12-04 06:11 | NUR ---
potassium pts potassium this morning 3.3 called MD received order for 40mEq KCL PO pt able to take but struggle to swallow them with out gagging, pt eating some jello and gram cracker. tele SR-ST 90-100s
[2016-12-04] MEDS: MetoCLOpramide 5 mg/mL 2 mL Inj IVPUSH PRN ×2 (09:18→18:20)
[2016-12-04] MEDS: Insulin LISPRO 300 Unit/3 mL Inj SUBQ SCH ×4 (09:18→21:26)
[2016-12-04] MEDS: 0.9% Sodium Chloride 1,000 ML IV SCH ×2 (10:27→21:29)
[2016-12-04] MEDS: Ondansetron 2 mg/mL 2 mL Inj IVPUSH PRN ×2 (13:27→20:44)
[2016-12-04] MEDS ORDERED: KCl 40 mEq/D5W 500 mL 40 MEQ in IV Premix 1 EACH IV ONE (15:30)
--- NOTE | 2016-12-04 19:26 | NUR ---
Declining Treatment/Education She has politely declined some treatment today. She refused her Gabapentin today saying, "My legs are good right now. I don't need it and it is a big pill." She refused to get a stress test today saying, "Can we just do it tomorrow? The Doctor said I could. I'm just too tired. See, I can't even hold my head up straight," while her head fell to the side and bumped against the bed rail. Staff noted she could easily get up independently to the bedside commode and sit up straight on her own throughout the entire day. She also did not participate well in diabetic teaching with the broadcast engineer. Resident team aware. Care continues.
--- NOTE | 2016-12-04 20:25 | PCM.PNMED ---
Subjective Date of Service Dec 04, 2016 Subjective overnight: No acute events overnight Today: The patient was to start discussed with cardiology Dr. Garrido, who stated that the patient is at low risk for cardiac event after cardiac catheterizations in 2015 and 2014. He believes that her symptoms are likely due to her uncontrolled diabetes. The patient states that she was taking her insulin however she understands that she was only drinking apple juice. She knows that she must get her diet better under control, and will require an additional short acting meal time insulin in the future. Exam Vital Signs Vital Sign - Last Date Time Temp Pulse Resp B/P Pulse Ox O2 Delivery O2 Flow Rate FiO2 12/04/16 03:17 37.3 116 18 150/76 97 Room Air Intake and Output 12/03/16 12/03/16 12/04/16 Cumulative From/Thru 15:00 23:00 07:00 12/02/16 18:50 - 12/04/16 06:19 Intake Total 274 ml 1239 ml 2513 ml Output Total 950 ml 950 ml Balance 274 ml 289 ml 1563 ml Intake Oral 940 ml 940 ml IV Total 274 ml 299 ml 1573 ml Output Urine Total 950 ml 950 ml Exam General: Middle-aged female appearing older than her stated age alert and oriented, in no acute distress lying in bed Eyes: Pupils equal, round, and reactive to light. Anicteric sclerae, moist conjunctivae, and no lid lag. Extraocular motion deficit at baseline from stroke. HENT: Normocephalic, atraumatic. External ears without defect. Oropharynx free of erythema and cobble stoning with moist mucosal Neck: Supple with full range of motion. No jugular venous distension. No bruits. No lymphadenopathy or thyromegaly. Cardiovascular: Tachycardic and rhythm with no murmurs, rubs, or gallops appreciated Pulmonary: Clear to auscultation bilaterally without any wheezing rales or rhonchi noted Abdomen: Bowel tones present. Soft, Diffuse tenderness with prominent tenderness over LUQ and LLQ, nondistended. No hepatosplenomegaly or masses appreciated. Extremities: No clubbing, cyanosis, edema, or lymphadenopathy appreciated, pulses intact bilaterally at the radial and dorsalis pedis Skin: Normal temperature, poor turgor, and texture; no rash, ulcers, or subcutaneous nodules appreciated. Neurological: No new focal neurologic deficits at this time, no slurred speech, or new worsening unilateral weakness noted Psychiatric: Normal mood and affect. Alert and oriented to person, place, and time. IVs and Medications Medications Reviewed: Medications were reviewed in detail Lab and Diagnostics Result Diagram: 12/04/16 0350 12/04/16 0350 X-Rays, CTs and MRIs CT Chest IMPRESSION: 1. No acute pulmonary process. No evidence of pulmonary embolism. Dictated by: Donna Diamond M.D. on 12/02/2016 at 21:47 Approved by: Donna Diamond M.D. on 12/02/2016 at 21:49 CT Abd / Pelvis IMPRESSION: 1. Diverticulosis. 2. Marked prominence lower uterine segment extending to the cervix. Mass lesion cannot be excluded. It is noted that appearance is similar, although slightly more prominent when compared to 05/04/16. Pelvic ultrasound may be obtained if clinically indicated. Dictated by: Donna Diamond M.D. on 12/02/2016 at 21:43 Approved by: Donna Diamond M.D. on 12/02/2016 at 21:46 12-lead ECG Rate 118 Sinus tachycardia Normal [place] LVH Anterior Q waves Multiple PACs in all leads No significant change from prior EKG Cardiac Echo Impressions Echocardiogram Report Interpretation Summary Left ventricular wall thickness is mildly increased. Left ventricular systolic function is normal. The ejection fraction is estimated to be 55-60%. Compared to the prior exam, left ventricular function is moderately improved. There is moderate to severe hypokinesis of the basal inferior, basal inferolateral and mild hypokinesis along basal to mid anterolateral segments. The E/A ratio is reversed with an elevated E/E', suggesting impaired early relaxation of the left ventricle with possible increased filling pressures. The right ventricle is normal in size and function. Pulmonary artery pressures cannot be estimated because of the lack of a measurable TR jet velocity. The left atrium is mildly dilated. The right atrium grossly appears normal in size. There is no significant valvular heart disease. MR and TR have decreased since prior study. The aortic root is normal size. Reading Physician:TIEN Additional Diagnostics ABG DateTimeAnalyzed 22:56:00 -_ pH ____7.349 - 7.350 7.450 pCO2 ___47.7__ -mmHg 35.0 45.0 pO2 ___67.1__ -mmHg 69.0 116 HCO3- ___25.6__ -mmol/L 22.0 26.0 Assessment & Plan Patient is a 55 y.o F with medical history of DM insulin dependent, CHF, NSTEM s /p cardiac cath with stenting x2, and stroke with residual visual deficit, GERD (last EGD "years ago"), HTN. Admitted for treatment of Abdominal pain, nausea, vomiting, NSTEMI, SREEDHAR. Hospital Day 2 1. unlikely non-ST segment elevation myocardial infarction, acute, present on admission - Patient at time of admit tachycardic, hypertensive, elevated troponin, c/o chest pain left sided, SOB, past history of cardiac stent, DMII, 60 pack year smoking history - Patient is an uncontrolled diabetic with chronic kidney disease and likely chronic troponin leak - Troponins trended over day of admission showed no significant change consistent with new infarction - echo interpretation shows moderate improvement in ejection fraction since previous echo performed with EF of 55-60%, severe wall motion abnormality noted however - Cardiology consulted. Spoke with claim analyst Dr. Garrido who stated that he believes the patient is at low risk for myocardial infarction with cardiac catheterizations performed and both 2015 and 2014. - Ordered and then canceled pharmacologic nuclear medicine stress test per Dr. Garrido's request - Continue ASA 81 mg PO QD - Continue Plavix 75 mg PO QD - Continue home dose metoprolol - Consider starting lisinopril 5 mg at resolution of acute kidney injury - Start Atorvastatin 40 mg PO HS - discontinue Heparin Drip - Continue Tele 2. Hyperglycemic Hyperosmolar nonketotic state, acute, present on admission - Blood glucose at admission 600, RR 18, + ketones, corrected NA 145, AG 32, LA 2.0 - Likely presentation of Hyperglycemic hyperosmolar state, with Lactic acidosis rather than DKA as patient does not clinically present with stigmata of DKA. - Continue IVF NS @ 100 mls/hr given 1 L bolus in ED, free water deficit calculated negative 1.6 L - Discontinue Insulin drip per protocol, NON-DKA - Urine Ketones positive - Lantus 30 units HS with medium correctional insulin scale 3. Diabetic gastroparesis, present on admission, chronic - Abdominal pain with nausea and vomiting - At time of exam patient is afebrile, active nauseous and dry heaving, WCT 14.8 - Abdominal/Pelvis CT showed uncertain lesion in uterus at cervix boarder - Continue IVF as above #2 - Compazine, Zofran and Reglan for nausea 4. Acute kidney injury on chronic Kidney disease, present on admission, - Prior history of Kidney disease - likely prerenal due to dehydration from vomiting and diarrhea - continue IVF NS as above #2 - UA ordered - Monitor I/O 5 Peripheral neuropathy, present on admission, chronic -Continue Gabapentin 6 diabetes mellitus type II insulin dependent, present on admission, chronic - history of DKA - Discontinue Insulin drip as above #2 - Restart Lantus and correction scale lispro as above #2 7 depression and anxiety, present on admission, chronic - Continue home medication 8 insomnia, present on admission, presumed chronic - Melatonin 5 MG PO HS PRN 9. Diastolic Congestive heart failure, present on admission, chronic - Shows poor relaxation - Start AZRA inhibitor once SREEDHAR resolves 10 Hypertension, present on admission, chronic - Continue home med - Consider starting Lisinopril as above #1 11 Hyperlipidemia, present on admission, chronic - Starting statin medication as above 12 gastroesophageal reflux disease, present on admission, chronic - Protonix 40 mg IV DAILY 13 history of cerebrovascular accident, present on admission, chronic - 2006 (March and August), presumed stable - Continue to monitor 14. Hyponatremia, not present on admission, acute - Replete as necessary CODE STATUS: full DVT prophylaxis: Heparin Drip GI prophylaxis: Protonix Patient will likely be discharged within the next few days. Physical therapy to guide recommendations for further placement. Expect to be returned home GI Prophylaxis: Proton Pump Inhibitor VTE Prophylaxis: Sub-Q Heparin (Unfractionated) Resuscitation Status: CPR: Attempt Resuscitation Time spent greater than 30 minutes Attending Statement The patient was seen and examined together with Dr. Hughes on 12/04/16 and I agree with the history, exam and plan as outlined in the note above. Binh Oh DO Dec 04, 2016 07:31 Maggie Hathaway DO Dec 08, 2016 16:44
[2016-12-04] MEDS: Insulin GLARgine 100 Unit/mL Syringe SUBQ SCH (21:26)
[2016-12-04] MEDS: Heparin 5,000 Unit/mL Inj SUBQ SCH (23:21)
[2016-12-04 23:46] LABS: APPEARANCE,URINE CLEAR (CLEAR,HAZY); COLOR,URINE YELLOW (YELLOW); OCCULT BLOOD,URINE SMALL (NEGATIVE)
[2016-12-04 23:47] LABS: UROBILINOGEN,URINE NORMAL (NORMAL)
[2016-12-05] VITALS (9 sets, daily range): BP systolic 114–166; BP diastolic 66–91; PULSE 68–107; RESP 16–18; O2SAT 97–100
[2016-12-05 03:15] LABS: BASOPHILS % (AUTO) 0.1 % (0-3); EOSINOPHILS % (AUTO) 0.8 % (0-5); Mean Corpuscular Hemoglobin 26.3 pg (27.0-35.0); Mean Corpuscular Volume 78.6 fL (81-100); NEUTROPHILS % (AUTO) 63.9 % (40-74); Platelet Count 264 bil/L (150-400)
--- NOTE | 2016-12-05 04:12 | NUR ---
GI/ HTN Pt reports mild nausea at HS. PRN Zofran given with good effect. Pt able to tolerate some oatmeal and jello. No further c/o nausea. Initial bp 170/100s. HR in the low 100s. HS metoprolol given with good results. HR decreased to 80s. hydralizine IVP needed x1 for SBP >160. current BP 120s/80s.
[2016-12-05] MEDS: Sucralfate 100 mg/mL 10 mL Suspension PO SCH ×4 (06:36→20:48)
[2016-12-05] MEDS: Ondansetron 2 mg/mL 2 mL Inj IVPUSH PRN ×2 (06:38→17:02)
[2016-12-05] MEDS: MetoCLOpramide 5 mg/mL 2 mL Inj IVPUSH PRN (07:58)
[2016-12-05] MEDS: Insulin LISPRO 300 Unit/3 mL Inj SUBQ SCH ×4 (08:57→20:49)
[2016-12-05] MEDS: Sodium Chloride LOK Flush 10 mL Syringe IVFLUSH SCH ×3 (08:58→20:51)
[2016-12-05] MEDS: Heparin 5,000 Unit/mL Inj SUBQ SCH ×3 (09:15→23:20)
[2016-12-05] MEDS ORDERED: Insulin GLARgine 100 Unit/mL Syringe SUBQ ONE (09:45)
[2016-12-05] MEDS: hydrALAZINE 20 mg/mL Inj IV PRN (13:10)
--- NOTE | 2016-12-05 16:38 | NUR ---
Social Work: Readiness for Discharge D: Pt discussed in am rounds. Pt is not medically stable for discharge at this time and is still requiring hospitalization to further determine proper insulin regime. MD anticipates no d/c needs from social work. EMR reviewed; pt has been ambulating I during admission. AD information provided to pt on 12/03 by [employer]. Pt lives at home with her s/o. At time of admission pt was listed at [employer]; pt's spouse provided insurance card for registration- pt is listed with [employer]. A: Pt who is I at baseline and lives with her . P: Anticipate pt to discharge home via POV once medically stable; [employer] to continue to follow. CYNDY Acosta
[2016-12-05] MEDS ORDERED: Glucose 40% Oral Gel 15 Gm Tube PO PRN (16:45)
--- NOTE | 2016-12-05 18:18 | PCM.PNMED ---
Subjective Date of Service Dec 05, 2016 Subjective overnight: No acute events overnight Today: Patient continues to have high blood glucose. She states that she feels like she is doing well with her diet at this point. She knows that she has a sweet tooth as well as craves salty things. She will speak to the dietitian today about possible healthy choices. The patient's primary care provider is Brigitte Nelson at [facility], she will follow-up with her primary care provider about changes to her insulin therapy. Exam Vital Signs Vital Sign - Last Date Time Temp Pulse Resp B/P Pulse Ox O2 Delivery O2 Flow Rate FiO2 12/05/16 04:55 107 12/05/16 03:03 36.9 18 126/89 97 12/04/16 23:23 Room Air Intake and Output 12/04/16 12/04/16 12/05/16 Cumulative From/Thru 14:59 22:59 06:59 12/02/16 18:50 - 12/05/16 05:14 Intake Total 580 ml 1088 ml 4181 ml Output Total 1275 ml 450 ml 2675 ml Balance -695 ml 638 ml 1506 ml Intake Oral 580 ml 220 ml 1740 ml IV Total 868 ml 2441 ml Output Urine Total 1275 ml 450 ml 2675 ml # Bowel Movements 0 0 Exam General: Middle-aged female appearing older than her stated age alert and oriented, in no acute distress lying in bed Eyes: Pupils equal, round, and reactive to light. Anicteric sclerae, moist conjunctivae, and no lid lag. Extraocular motion deficit at baseline from stroke. HENT: Normocephalic, atraumatic. External ears without defect. Oropharynx free of erythema and cobble stoning with moist mucosal Neck: Supple with full range of motion. No jugular venous distension. No bruits. No lymphadenopathy or thyromegaly. Cardiovascular: Regular rate and rhythm with no murmurs, rubs, or gallops appreciated Pulmonary: Clear to auscultation bilaterally without any wheezing rales or rhonchi noted Abdomen: Bowel tones present. Soft, nontender, no hepatosplenomegaly or masses appreciated. Extremities: No clubbing, cyanosis, edema, or lymphadenopathy appreciated, pulses intact bilaterally at the radial and dorsalis pedis Skin: Normal temperature, poor turgor, and texture; no rash, ulcers, or subcutaneous nodules appreciated. Neurological: No new focal neurologic deficits at this time, no slurred speech, or new worsening unilateral weakness noted Psychiatric: Normal mood and affect. Alert and oriented to person, place, and time. IVs and Medications Medications Reviewed: Medications were reviewed in detail Lab and Diagnostics Result Diagram: 12/05/16 0254 12/05/16 0254 X-Rays, CTs and MRIs CT Chest IMPRESSION: 1. No acute pulmonary process. No evidence of pulmonary embolism. Dictated by: Donna Diamond M.D. on 12/02/2016 at 21:47 Approved by: Donna Diamond M.D. on 12/02/2016 at 21:49 CT Abd / Pelvis IMPRESSION: 1. Diverticulosis. 2. Marked prominence lower uterine segment extending to the cervix. Mass lesion cannot be excluded. It is noted that appearance is similar, although slightly more prominent when compared to 05/04/16. Pelvic ultrasound may be obtained if clinically indicated. Dictated by: Donna Diamond M.D. on 12/02/2016 at 21:43 Approved by: Donna Diamond M.D. on 12/02/2016 at 21:46 12-lead ECG Rate 118 Sinus tachycardia Normal [place] LVH Anterior Q waves Multiple PACs in all leads No significant change from prior EKG Cardiac Echo Impressions Echocardiogram Report Interpretation Summary Left ventricular wall thickness is mildly increased. Left ventricular systolic function is normal. The ejection fraction is estimated to be 55-60%. Compared to the prior exam, left ventricular function is moderately improved. There is moderate to severe hypokinesis of the basal inferior, basal inferolateral and mild hypokinesis along basal to mid anterolateral segments. The E/A ratio is reversed with an elevated E/E', suggesting impaired early relaxation of the left ventricle with possible increased filling pressures. The right ventricle is normal in size and function. Pulmonary artery pressures cannot be estimated because of the lack of a measurable TR jet velocity. The left atrium is mildly dilated. The right atrium grossly appears normal in size. There is no significant valvular heart disease. MR and TR have decreased since prior study. The aortic root is normal size. Reading Physician:PM Additional Diagnostics ABG DateTimeAnalyzed 22:56:00 -_ pH ____7.349 - 7.350 7.450 pCO2 ___47.7__ -mmHg 35.0 45.0 pO2 ___67.1__ -mmHg 69.0 116 HCO3- ___25.6__ -mmol/L 22.0 26.0 Assessment & Plan Patient is a 55 y.o F with medical history of DM insulin dependent, CHF, NSTEM s /p cardiac cath with stenting x2, and stroke with residual visual deficit, GERD (last EGD "years ago"), HTN. Admitted for treatment of Abdominal pain, nausea, vomiting, NSTEMI, SREEDHAR. Hospital Day 3 1. Hyperglycemic Hyperosmolar nonketotic state, acute, present on admission, treated - Blood glucose at admission 600, RR 18, + urine ketones, corrected NA 145, AG 32, LA 2.0 - Likely presentation of Hyperglycemic hyperosmolar state, with Lactic acidosis rather than DKA as patient does not clinically present with stigmata of DKA. - Continue IVF NS @ 100 mls/hr given 1 L bolus in ED, free water deficit calculated negative 1.6 L - Discontinue Insulin drip per protocol, NON-DKA - Records indicate the patient received 40 units of regular insulin over at 9 hour with blood glucoses dropping from greater than 500 (reported 600) to approximately 182 - Lantus 30 units HS with high correctional insulin scale - Patient remained hyperglycemic overnight December 04 with blood glucose 250, one time Lantus 30 units given the morning of 12/05/2016 - Blood glucose December 05 at 5 PM at approximately 180 - Adjust Lantus dosing December 06 based off of overnight glucose readings - start Lisinopril 10 mg given need for renal protection with diabetes and resolution of SREEDHAR 2. Diabetic gastroparesis, present on admission, chronic - Abdominal pain with nausea and vomiting - At time of exam patient is afebrile, active nauseous and dry heaving, WCT 14.8 - Abdominal/Pelvis CT showed uncertain lesion in uterus at cervix boarder this will require ultrasound imaging to monitor as an outpatient - Continue IVF as above #2 - Compazine, Zofran and Reglan for nausea 3. Acute kidney injury on chronic Kidney disease, present on admission, - Prior history of Kidney disease - likely prerenal due to dehydration from vomiting and diarrhea - continue IVF NS as above #2 - UA ordered - Monitor I/O 4 Peripheral neuropathy, present on admission, chronic -Continue Gabapentin 5 diabetes mellitus type II insulin dependent, present on admission, chronic - history of DKA - Discontinue Insulin drip as above #1 - Lantus and correction scale lispro as above #1 6 depression and anxiety, present on admission, chronic - Continue home sertraline medication 7 insomnia, present on admission, presumed chronic - Melatonin 5 MG PO HS PRN 8. Diastolic Congestive heart failure, present on admission, chronic - Shows poor relaxation - Metoprolol 100 twice a day - start Lisinopril 10 mg given resolution of SREEDHAR - Restart furosemide 12/06/2016 9 Hypertension, present on admission, chronic - Continue home med - Lisinopril as above #8 10 Hyperlipidemia, present on admission, chronic - Starting statin medication as above 11 gastroesophageal reflux disease, present on admission, chronic - Protonix 40 mg IV DAILY 12 history of cerebrovascular accident, present on admission, chronic - 2006 (March and August), presumed stable - Continue to monitor 13. Hyponatremia, not present on admission, acute - Replete as necessary 14. unlikely non-ST segment elevation myocardial infarction, acute, present on admission - Patient at time of admit tachycardic, hypertensive, elevated troponin, c/o chest pain left sided, SOB, past history of cardiac stent, DMII, 60 pack year smoking history - Patient is an uncontrolled diabetic with chronic kidney disease and likely chronic troponin leak - Troponins trended over day of admission showed no significant change consistent with new infarction - echo interpretation shows moderate improvement in ejection fraction since previous echo performed with EF of 55-60%, severe wall motion abnormality noted however - Cardiology consulted. Spoke with videogame designer Dr. Garrido who stated that he believes the patient is at low risk for myocardial infarction with cardiac catheterizations performed and both 2015 and 2014. - Ordered and then canceled pharmacologic nuclear medicine stress test per Dr. Lo's request - Continue ASA 81 mg PO QD - Continue Plavix 75 mg PO QD - Continue home dose metoprolol - lisinopril 10 mg at resolution of acute kidney injury - Start Atorvastatin 40 mg PO HS - discontinue Heparin Drip - Continue Tele CODE STATUS: full DVT prophylaxis: Heparin sub cutaneous GI prophylaxis: Protonix Patient will likely be discharged within the next few days. Physical therapy to guide recommendations for further placement. Expect to be returned home Pain Evaluation: Adequate Pain Control GI Prophylaxis: Proton Pump Inhibitor VTE Prophylaxis: Sub-Q Heparin (Unfractionated) Resuscitation Status: CPR: Attempt Resuscitation Time spent 30 minutes Attending Statement The patient was seen and examined together with Dr. Hughes on 12/05/16 and I agree with the history, exam and plan as outlined in the note above. Binh Oh DO Dec 05, 2016 07:41 Maggie Hathaway DO Dec 08, 2016 16:47
--- NOTE | 2016-12-05 18:39 | NUR ---
Nausea Pt. reported severe nausea this morning even after hourly shift manager ondansetron administration. PRN Reglan given which helped. Pt. c/o very mild nausea during most of the day, but did not want any antiemetics until around 1700. Ondansetron given. Pt. states relief.
[2016-12-05] MEDS: Insulin GLARgine 100 Unit/mL Syringe SUBQ SCH (20:48)
--- NOTE | 2016-12-06 00:52 | NUR ---
Transfer to [facility] Patient arrived via wheelchair at 0052, A/Ox3, transferred independently to . , Tele SR 64.
[2016-12-06 01:44] VITALS: BP 105/67; PULSE 66; RESP 18; O2SAT 98
[2016-12-06 04:48] VITALS: PULSE 79
[2016-12-06 04:57] VITALS: BP 151/83; PULSE 69; RESP 18; O2SAT 99
[2016-12-06] MEDS: Sucralfate 100 mg/mL 10 mL Suspension PO SCH ×3 (05:02→17:01)
[2016-12-06 05:51] LABS: BASOPHILS % (AUTO) 0.1 % (0-3); Mean Corpuscular Hemoglobin 26.5 pg (27.0-35.0); Mean Corpuscular Volume 77.4 fL (81-100); NEUTROPHILS % (AUTO) 51.6 % (40-74); Platelet Count 269 bil/L (150-400)
--- NOTE | 2016-12-06 06:18 | NUR ---
Blood Glucose 0300 B. Patient up to bathroom at 0450, reported feeling weak, denied dizziness, BG 87. Carafate administered per patient request, followed by apple juice. BG with a.m. lab draw at 0535: 137.
[2016-12-06 08:00] VITALS: PULSE 72
[2016-12-06] MEDS: Insulin LISPRO 300 Unit/3 mL Inj SUBQ SCH ×3 (08:52→17:04)
[2016-12-06] MEDS: MetoCLOpramide 5 mg/mL 2 mL Inj IVPUSH PRN ×2 (08:53→15:01)
[2016-12-06] MEDS: Sodium Chloride LOK Flush 10 mL Syringe IVFLUSH SCH ×2 (09:01→15:22)
[2016-12-06] MEDS: Heparin 5,000 Unit/mL Inj SUBQ SCH (09:02)
[2016-12-06 09:39] VITALS: BP 159/79; PULSE 72; RESP 18; O2SAT 99
[2016-12-06] MEDS ORDERED: Potassium Chloride 20 mEq SR Tablet PO ONE (10:10)
[2016-12-06] MEDS: Ondansetron 2 mg/mL 2 mL Inj IVPUSH PRN (10:46)
--- NOTE | 2016-12-06 11:46 | NUR ---
Social Work: Readiness for d/c Data: Pt is on day 4 of hospitalization. EMR reviewed. Pt discussed. MD states pt likely to d/c today. RN states pt is nervous to go home. states RN and PT would be appropriate for pt. BACK PADDER met with pt at bedside, HH choice list given. No preference stated. Pt referred to [facility], they are not contracted with pt's insurance. [facility] states that [facility] is contracted. BACK PADDER called [facility], referred pt, access given. BACK PADDER awaiting phone call from them regarding HH referral. Assessment: Pt who is independent at baseline. Plan: Pt will d/c home via POV today with [facility]. BACK PADDER will continue to follow. F2F in BACK PADDER folder at this time. CYNDY Gaxiola
[2016-12-06 13:27] VITALS: BP 113/72; PULSE 69; RESP 18; O2SAT 99
--- NOTE | 2016-12-06 13:56 | PCM.DIMED ---
Kevon Santos DO 12/06/16 1344: Discharge Instructions Date of Service Dec 06, 2016 Dates of Hospitalization Dec 02, 2016 at 23:11 Discharge Diagnosis Discharge Diagnosis 1. Diabetic Ketoacidosis acute 2. Diabetic gastroparesis 3. Acute kidney injury on chronic Kidney disease 4 Peripheral neuropathy 5 diabetes mellitus type II insulin dependent, uncontrolled 6 depression and anxiety 7 insomnia secondary to depression 8. Diastolic Congestive heart failure 9 Hypertension 10 Hyperlipidemia 11 gastroesophageal reflux disease 12 History of cerebrovascular accident 13. Hyponatremia - resolved 14. Chronically Elevated Troponin 15. Lower Uterine Thickening noted on CT Medication Instructions Please continue to inject your Insulin every night as instructed, your new dosage is 25 units at night. You were started on a medication called Lisinopril for your blood pressure and kidney protection. You can take Melatonin at home for sleep. I will switch your antidepressant to Fluoxetine to decrease adverse effects, please take this every day. Continue taking your other medications as prescribed. Diet Low fat, Low Sodium Activity No restrictions Call your provider Fever or Chills, Shortness of breath, Bleeding, Chest pain, Vomitting, Excessive diarrhea Patient Instructions You are being discharged home with home health services. Your diabetes was not controlled and you were admitted for diabetic ketoacidosis. This is now stable, but you will need to continue controlling your sugar levels better. Please follow up with your primary care doctor within 1-2 days to evaluate your sugars. Please continue taking your blood sugars 3 times per day and write them down. Follow-up Provider: Brigitte Nelson MD Follow-up with PCP in: 1 week Olivier Morel MD 12/06/16 1638: Discharge Instructions Attending's Statement The patient was seen and examined independently on 12/06/2016 and case discussed with Dr. Santos , I agree with the discharge instructions as outlined in the note above. Kevon Santos DO Dec 06, 2016 13:44 Olivier Morel MD Dec 06, 2016 16:38
[2016-12-06] MEDS ORDERED: INSU100V7 SUBQ (14:05)
[2016-12-06] MEDS ORDERED: FLUO20TA28 PO (14:05)
[2016-12-06] MEDS ORDERED: METO100T3 PO (14:05)
[2016-12-06] MEDS ORDERED: ATOR40TA69 PO (14:05)
[2016-12-06] MEDS ORDERED: CLOP75TA28 PO (14:05)
[2016-12-06] MEDS ORDERED: MTC5T PO (14:05)
--- NOTE | 2016-12-06 16:07 | NUR ---
Social Work: Discharge Data: Pt is on day 4 of hospitalization. EMR reviewed. states pt will d/c today. GEOGRAPHIC INFORMATION SYSTEMS DIRECTOR referred pt to [facility] and to [facility] to see if they work with pt's insurance. Awaiting phone calls back. GEOGRAPHIC INFORMATION SYSTEMS DIRECTOR will continue to follow up post d/c for pt. No other d/c planning needs at this time. GEOGRAPHIC INFORMATION SYSTEMS DIRECTOR will continue to follow. Assessment: Pt who is independent at baseline. Plan: Pt will d/c home via POV today with HH either with [facility] or [facility] . GEOGRAPHIC INFORMATION SYSTEMS DIRECTOR will continue to follow post d/c regarding HH. CYNDY Gaxiola
--- NOTE | 2016-12-06 16:24 | NUR ---
Evaluation completed. Please go to "Notes" then click on "Assessments and Notes" (bottom left corner of screen). Then select appropriate discipline tab on top of screen.
--- NOTE | 2016-12-06 18:11 | NUR ---
discharge went over discharge instructions and medications with patient who verbally acknowledged understanding. Removed patent, intact IV and tele. Gave pt her home medications from pharmacy. pt had no transportation so we called her a cab. Pt stated that she had money to cover her ride as she does not have medicare insurance. pt was brought down in wheelchair by KENNEL OPERATOR to awaiting taxi. No s/s of distress at time of dc
--- NOTE | 2016-12-06 18:19 | PCM.DC.MED ---
Discharge Summary Date of Service Dec 06, 2016 Dates of Hospitalization Date of Hospital Admission Dec 02, 2016 at 23:11 Date of Discharge: Dec 06, 2016 Providers: Admitting Physician: Jose Angel Cruz MD Primary Care Physician: Brigitte Nelson MD Attending Physician: Jose Angel Cruz MD Diagnosis at Time of Discharge Diagnosis at Time of Discharge 1. Diabetic Ketoacidosis acute 2. Diabetic gastroparesis 3. Acute kidney injury on chronic Kidney disease 4 Peripheral neuropathy 5 diabetes mellitus type II insulin dependent, uncontrolled 6 depression and anxiety 7 insomnia secondary to depression 8. Diastolic Congestive heart failure 9 Hypertension 10 Hyperlipidemia 11 gastroesophageal reflux disease 12 History of cerebrovascular accident 13. Hyponatremia - resolved 14. Chronically Elevated Troponin 15. Lower Uterine Thickening noted on CT Procedures XRay, CTs & MRIs CT Chest IMPRESSION: 1. No acute pulmonary process. No evidence of pulmonary embolism. Dictated by: Donna Diamond M.D. on 12/02/2016 at 21:47 Approved by: Donna Diamond M.D. on 12/02/2016 at 21:49 CT Abd / Pelvis IMPRESSION: 1. Diverticulosis. 2. Marked prominence lower uterine segment extending to the cervix. Mass lesion cannot be excluded. It is noted that appearance is similar, although slightly more prominent when compared to 05/04/16. Pelvic ultrasound may be obtained if clinically indicated. Dictated by: Donna Diamond M.D. on 12/02/2016 at 21:43 Approved by: Donna Diamond M.D. on 12/02/2016 at 21:46 ECG 12 Lead Rate 118 Sinus tachycardia Normal [place] LVH Anterior Q waves Multiple PACs in all leads No significant change from prior EKG Cardiac Echo Impression Echocardiogram Report Interpretation Summary Left ventricular wall thickness is mildly increased. Left ventricular systolic function is normal. The ejection fraction is estimated to be 55-60%. Compared to the prior exam, left ventricular function is moderately improved. There is moderate to severe hypokinesis of the basal inferior, basal inferolateral and mild hypokinesis along basal to mid anterolateral segments. The E/A ratio is reversed with an elevated E/E', suggesting impaired early relaxation of the left ventricle with possible increased filling pressures. The right ventricle is normal in size and function. Pulmonary artery pressures cannot be estimated because of the lack of a measurable TR jet velocity. The left atrium is mildly dilated. The right atrium grossly appears normal in size. There is no significant valvular heart disease. MR and TR have decreased since prior study. The aortic root is normal size. Reading Physician:TIEN [facility] DateTimeAnalyzed 22:56:00 -_ pH ____7.349 - 7.350 7.450 pCO2 ___47.7__ -mmHg 35.0 45.0 pO2 ___67.1__ -mmHg 69.0 116 HCO3- ___25.6__ -mmol/L 22.0 26.0 Brief History per HPI Patient is a 55 y.o F with medical history of DM insulin dependent, CHF, NSTEM s /p cardiac cath with stenting x2, and stroke with residual visual deficit, GERD (last EGD "years ago"), HTN. She presented to the Ed with 4 days of abdominal pain, nausea, vomiting, and 1 day history of chest pain. Patient stated that symptoms began with abdominal pain described as nausea and "feels like an ulcer ", localized to left upper quadrant, associated with vomiting without blood, diarrhea without blood or pus that has resolved one day ago, 14 lb weight loss, subjective fever, chills, generalized weakness (patient normally able to ambulate with cane). Patient denies blood in stool, mucus in stool, pain with BM , dysuria.Patient reported a friend has been sick with similar symptoms. Diarrhea improved with antidiarrheal and nausea improved with zofran in ED. Patient stated that chest pain began suddenly yesterday and continued onto today prompting ED visit. Patient describe pain as racing heart, localized to her left breast non radiating, associated with SOB, orthopnea, PND. She stated that chest pain is similar to episode when she had stents placed. Patient denies chest pressure, syncope, change in vision from baseline, headache. Ict Developer Dr. Scott Hospital Course Patient is a 55 y.o F with medical history of DM insulin dependent, CHF, NSTEM s /p cardiac cath with stenting x2, and stroke with residual visual deficit, GERD (last EGD "years ago"), HTN. Admitted for treatment of Abdominal pain, nausea, vomiting, NSTEMI, SREEDHAR. 1. DKA, acute, present on admission, Resolved - Blood glucose at admission 600, RR 18, + urine ketones, corrected NA 145, AG 32, LA 2.0 - treated with IVF NS @ 100 mls/hr given 1 L bolus in ED, free water deficit calculated negative 1.6 L - Discontinued Insulin drip per protocol, NON-DKA - Records indicate the patient received 40 units of regular insulin over at 9 hour with blood glucoses dropping from greater than 500 (reported 600) to approximately 182 - Lantus 30 units HS with high correctional insulin scale implemented after the Insulin drip - Patient remained hyperglycemic overnight December 04 with blood glucose 250, one time Lantus 30 units given the morning of 12/05/2016, which did not improve her morning glucose much. - started Lisinopril 10 mg given need for renal protection with diabetes and resolution of SREEDHAR - Patient's blood sugars mildly improved on day of discharge. Her morning FBG was 87. Patient reports she was injecting 40 units of Lantus HS prior to her heart attack last year, and afterwards was only placed on 15 units HS. - Discharged patient on 25 units of Lantus HS with frequent blood sugar testing and follow up with PCP for titration. 2. Diabetic gastroparesis, present on admission, chronic - Abdominal pain with nausea and vomiting - At time of exam patient is afebrile, active nauseous and dry heaving, WCT 14.8 - Abdominal/Pelvis CT showed uncertain lesion in uterus at cervix boarder this will require ultrasound imaging to monitor as an outpatient - Compazine, Trevon and Reglan for nausea 3. Acute kidney injury on chronic Kidney disease, present on admission, - Prior history of Kidney disease - likely prerenal due to dehydration from vomiting and diarrhea - UA benign 4 Peripheral neuropathy, present on admission, chronic -Continue Gabapentin 5 Uncontrolled diabetes mellitus type II insulin dependent, present on admission , chronic -AIC 14 - history of DKA - Discontinue Insulin drip as above #1 - Lantus and correction scale lispro as above #1 6 depression and anxiety, present on admission, chronic - Continue home sertraline medication 7 insomnia, present on admission, presumed chronic - Melatonin 5 MG PO HS PRN 8. Diastolic Congestive heart failure, present on admission, chronic - Shows poor relaxation - Metoprolol 100 twice a day - start Lisinopril 10 mg given resolution of SREEDHAR - Restart furosemide 12/06/2016 9 Hypertension, present on admission, chronic - Continue home med - Lisinopril as above #8 10 Hyperlipidemia, present on admission, chronic - Starting statin medication as above 11 gastroesophageal reflux disease, present on admission, chronic - Protonix 40 mg PO DAILY 12 history of cerebrovascular accident, present on admission, chronic - 2006 (March and August), presumed stable - Continue to monitor 13. Hyponatremia, not present on admission, acute - Replete as necessary 14. unlikely non-ST segment elevation myocardial infarction, acute, present on admission - Patient at time of admit tachycardic, hypertensive, elevated troponin, c/o chest pain left sided, SOB, past history of cardiac stent, DMII, 60 pack year smoking history - Patient is an uncontrolled diabetic with chronic kidney disease and likely chronic troponin leak - Troponins trended over day of admission showed no significant change consistent with new infarction - echo interpretation shows moderate improvement in ejection fraction since previous echo performed with EF of 55-60%, severe wall motion abnormality noted however - Cardiology consulted. Spoke with trench trimmer fine Dr. Garrido who stated that he believes the patient is at low risk for myocardial infarction with cardiac catheterizations performed and both 2015 and 2014. - Ordered and then canceled pharmacologic nuclear medicine stress test per Dr. Garrido's request - Continue ASA 81 mg PO QD - Continue Plavix 75 mg PO QD - Continue home dose metoprolol - lisinopril 10 mg at resolution of acute kidney injury - Start Atorvastatin 40 mg PO HS - discontinued Heparin Drip Exam Vital Signs (Last) Date Time Temp Pulse Resp B/P Pulse Ox O2 Delivery O2 Flow Rate FiO2 12/06/16 13:27 37.1 69 18 113/72 99 Room Air Exam General: Middle-aged female appearing older than her stated age alert and oriented, in no acute distress while sitting in chair Eyes: Pupils equal, round, and reactive to light. Anicteric sclerae, moist conjunctivae, and no lid lag. HENT: Normocephalic, atraumatic. External ears without defect. Oropharynx free of erythema and cobble stoning with moist mucosal Neck: Supple with full range of motion. No jugular venous distension. Cardiovascular: Regular rate and rhythm with no murmurs, rubs, or gallops appreciated Pulmonary: Clear to auscultation bilaterally without any wheezing rales or rhonchi noted Abdomen: Bowel tones present. Soft, nontender, no hepatosplenomegaly or masses appreciated. Extremities: No clubbing, cyanosis, edema, or lymphadenopathy appreciated, pulses intact bilaterally at the radial and dorsalis pedis Skin: Normal temperature, poor turgor, and texture; no rash, ulcers, or subcutaneous nodules appreciated. Neurological: No new focal neurologic deficits at this time, no slurred speech, or new worsening unilateral weakness noted Psychiatric: Normal mood and affect. Alert and oriented to person, place, and time. Test 12/02/16 19:22 12/02/16 20:50 12/02/16 21:48 12/03/16 04:15 Prothrombin Time 11.4sec (8.1-12.5) Prothromb Time International Ratio 1.06ratio D-Dimer 0.5mg/L (<0.50) Hemoglobin A1c 14.0% (4.8-5.6) Lactic Acid Level 2.0mmol/L (0.4-2.0) Magnesium Level 2.5mg/dL (1.6-2.6) Lipase 26U/L (13-60) Thyroid Stimulating Hormone (TSH) 0.180uIU/mL (0.450-4.500) Ketones Positive (Negative) Hold Urine Received (Received) Total Creatine Kinase 356U/L (21-215) Creatine Kinase MB 6.2ng/mL (0.0-5.3) Creatine Kinase MB % 1.7% (0.0-5.0) Troponin T 0.065ug/L (0.0-0.011) Triglycerides Level 273mg/dL (0-149) Cholesterol Level 170mg/dL (100-199) LDL Cholesterol, Calculated 79.400mg/dL (0-99) VLDL Cholesterol 54.600mg/dL HDL Cholesterol 36mg/dL (>39) Cholesterol/HDL Ratio 4.72 (0.0-4.4) Test 12/04/16 03:50 12/04/16 18:02 12/04/16 23:34 12/05/16 02:54 Free Thyroxine 1.51ng/dL (0.82-1.77) Activated Partial Thromboplast Time 58.1sec (22.8-33.0) Urine Color Yellow (YELLOW) Urine Appearance Clear (CLEAR,HAZY) Urine pH 6.0 (5.0-8.0) Urine Specific Tobias 1.020 (1.003-1.035) Urine Protein 100mg/dL (NEG,TRACE) Urine Glucose (UA) >1000mg/dL (NEGATIVE) Urine Ketones 15mg/dL (NEGATIVE) Urine Occult Blood Small (NEGATIVE) Urine Nitrite Negative (NEGATIVE) Urine Bilirubin Negative (NEGATIVE) Urine Urobilinogen Normalmg/dL (NORMAL) Urine Leukocyte Esterase Negative (NEGATIVE) Urine RBC 0-2/hpf (0-2) Urine WBC 0-5/hpf (0-5) Urine Epithelial Cells Moderate/hpf (NONE-MOD) Urine Crystals None seen (NONE SEEN) Urine Bacteria Few/hpf (NONE-FEW) Urine Hyaline Casts None/lpf (NONE) Urine Granular Casts None seen (NONE SEEN) Urine Waxy Casts None seen (NONE SEEN) Urine Red Blood Cell Casts None seen (NONE SEEN) Urine White Blood Cell Casts None seen (NONE SEEN) Urine Mucus None seen (None Seen) Urine Trichomonas None seen (NONE SEEN) Urine Yeast None (NONE SEEN) Urine Culture Reflexed Not indicated Procalcitonin 0.06ng/mL (0.00-0.08) Test 12/06/16 05:35 White Blood Count 14.3th/mm3 (3.8-10.1) Red Blood Count 4.42mil/mm3 (3.90-5.20) Hemoglobin 11.7g/dL (12.0-15.6) Hematocrit 34.2% (35.0-46.0) Mean Corpuscular Volume 77.4fL (81-100) Mean Corpuscular Hemoglobin 26.5pg (27.0-35.0) Mean Corpuscular Hemoglobin Concent 34.2% (32.0-37.0) Red Cell Distribution Width 14.0% (12.3-15.4) Platelet Count 269bil/L (150-400) Neutrophils (%) (Auto) 51.6% (40-74) Lymphocytes (%) (Auto) 36.8% (14-46) Monocytes (%) (Auto) 9.0% (4-12) Eosinophils (%) (Auto) 2.0% (0-5) Basophils (%) (Auto) 0.1% (0-3) Sodium Level 135mEq/L (134-144) Potassium Level 3.2mEq/L (3.5-5.2) Chloride Level 99mEq/L (97-108) Carbon Dioxide Level 23mmol/L (18-29) Blood Urea Nitrogen 20mg/dL (6-24) Creatinine 0.81mg/dL (0.57-1.00) Estimat Glomerular Filtration Rate 104mL/min (>59) Glucose Level 137mg/dL (60-99) Calcium Level 9.2mg/dL (8.5-10.1) Total Bilirubin 0.3mg/dL (0.0-1.2) Aspartate Amino Transf (AST/SGOT) 14U/L (0-50) Alanine Aminotransferase (ALT/SGPT) 15U/L (0-32) Alkaline Phosphatase 82U/L (25-150) Total Protein 5.4g/dL (6.4-8.4) Albumin 3.0g/dL (3.4-5.0) Discharge Medications Discharge Medications Aspirin Chew (Aspirin Chew) 81 Mg Tablet 81 MG PO DAILY Prescribed by: SWATI CHAVES DO Atorvastatin Calcium (Atorvastatin Calcium) 80 Mg Tablet 80 MG PO HS (Reported) Atorvastatin Calcium (Atorvastatin Calcium) 40 Mg Tablet 40 MG PO HS Prescribed by: DAYANARA SANTOS DO Clopidogrel (Clopidogrel) 75 Mg Tablet 75 MG PO DAILY Prescribed by: DAYANARA SANTOS DO Fluoxetine (Fluoxetine) 20 Mg Tablet 20 MG PO DAILY Prescribed by: DAYANARA SANTOS DO Furosemide (Furosemide) 20 Mg Tab 20 MG PO QAM (Reported) Gabapentin (Gabapentin) 400 Mg Capsule 400 MG PO BID (Reported) Glipizide (Glipizide) 5 Mg Tablet 5 MG PO BID (Reported) Insulin Glargine (Lantus U100 Insulin Vial) 100 Unit/Ml Vial 25 UNIT SUBQ HS Prescribed by: DAYANARA SANTOS DO Metoprolol Tartrate (Metoprolol Tartrate) 100 Mg Tablet 100 MG PO BID Prescribed by: DAYANARA SANTOS DO Ranitidine (Zantac) 150 Mg Tablet 150 MG PO BID (Reported) As needed Metoclopramide (Metoclopramide) 5 Mg Tablet 5 MG PO QID PRN PRN For Nausea Prescribed by: DAYANARA SANTOS DO Additional med instructions Please continue to inject your Insulin every night as instructed, your new dosage is 25 units at night. You were started on a medication called Lisinopril for your blood pressure and kidney protection. You can take Melatonin at home for sleep. I will switch your antidepressant to Fluoxetine to decrease adverse effects, please take this every day. Continue taking your other medications as prescribed. Followup Plan Disposition: Home with [facility] Discharge Diet: Low fat, Low Sodium Discharge Activity: No restrictions Patient Instructions You are being discharged home with home health services. Your diabetes was not controlled and you were admitted for diabetic ketoacidosis. This is now stable, but you will need to continue controlling your sugar levels better. Please follow up with your primary care doctor within 1-2 days to evaluate your sugars. Please continue taking your blood sugars 3 times per day and write them down. Follow-up Provider: Brigitte Nelson MD Follow-up with PCP in: 1 week Time spent 35 minutes Attending Statement The patient was seen and examined independently on 12/06/2016 and case discussed with Dr. Santos , I agree with the discharge summary as outlined in the note above. copies to: Brigitte Nelson MD, Hong D DO Dec 06, 2016 18:13 Olivier Morel MD Dec 07, 2016 07:23
[2016-12-06] MEDS ORDERED: Insulin GLARgine 100 Unit/mL Syringe SUBQ SCH (21:00)
[2016-12-07] MEDS ORDERED: Potassium Chloride 20 mEq SR Tablet PO SCH (08:00)
--- NOTE | 2016-12-07 14:47 | NUR ---
Social Work: Late Note Data: Pt discharged on 12/06/16. [employer] heard back from Vlad Deleon with [employer] who states they are not contracted with pt's insurance. [employer] called [facility] and left a message with them to call the [facility] social work phone back on Friday to confirm that they are contracted with pt's insurance and that they plan to open with pt. [employer]ING [employer] will continue to follow. CYNDY Gaxiola
--- NOTE | 2016-12-12 13:57 | NUR ---
Social Work: Late Note SCREW REMOVER notified by UR specialist that [facility] does not contract with pt's insurance either. SCREW REMOVER called pt and left a message relaying that none of the HH companies are contracted with her insurance and if she would like to pay privately to call SCREW REMOVER back to coordinate this. No further SCREW REMOVER needs. CYNDY Gaxiola
== END 2016-12-06 18:29 | disposition home health service (06) | DRG 638 ==
LOC: SED 18:26 → PCC 23:11 → MPC 12-06 00:47
PROVIDERS: ADMIT Hospitalist; ATTEND Hospitalist
PROC: 4A033R1 Measurement of Arterial Saturation, Peripheral, Percutaneous Approach (ICD-10-PCS; principal; 2016-12-02)
DX: E11.00 Type 2 diabetes mellitus with hyperosmolarity without nonketotic hyperglycemic-hyperosmolar coma (NKHHC) (principal); E87.1 Hypo-osmolality and hyponatremia; N17.9 Acute kidney failure, unspecified; I50.32 Chronic diastolic (congestive) heart failure; Z79.4 Long term (current) use of insulin; E78.5 Hyperlipidemia, unspecified; K21.9 Gastro-esophageal reflux disease without esophagitis; F32.9 Major depressive disorder, single episode, unspecified; F41.9 Anxiety disorder, unspecified; G47.09 Other insomnia; Z87.891 Personal history of nicotine dependence; I69.398 Other sequelae of cerebral infarction; I25.10 Atherosclerotic heart disease of native coronary artery without angina pectoris; N18.9 Chronic kidney disease, unspecified; I12.9 Hypertensive chronic kidney disease with stage 1 through stage 4 chronic kidney disease, or unspecified chronic kidney disease; E11.43 Type 2 diabetes mellitus with diabetic autonomic (poly)neuropathy; E11.65 Type 2 diabetes mellitus with hyperglycemia; K31.84 Gastroparesis; E86.0 Dehydration

== ENCOUNTER 2017-03-16 20:06 | Emergency (ER) | payer OTHER ==
[~2017-03-16] VITALS: Ht 167.6 cm; Wt 81.8 kg
[~2017-03-16 20:06] MED LIST changes: -AMOX-366 PO; +ATOR40TA69 PO; +FLUO20TA28 PO; -LACT1CAP44 PO; +METO100T3 PO; -METO50TA3 PO; +MTC5T PO; -NITR0.4T SL; -PANT40TA3 PO; +RANI150T11 PO; -SERT100T9 PO; -SUCR1ORA PO
[2017-03-16 20:22] VITALS: BP 215/97; PULSE 110; RESP 14; O2SAT 98
--- NOTE | 2017-03-16 21:03 | ED.REPORT ---
HPI-Abd Pain F 40 and Over Date of Service Mar 16, 2017 ED Provider: Davide Katz MD The pt is a 56 y/o female w/ a hx of gastroparesis, HTN, CHF, hyperlipidemia, diabetes, and an PA in 2014 presenting to the ED via EMS due to vomiting. The nausea and vomiting have been progressively worsening for the last two weeks. She is also experiencing L sided chest pain that radiates to her back. She was unable to keep her evening medications down and has been unable to keep liquids down for the last 2 days. She describes her symptoms currently similar to her PA she had. She has been monitoring her glucose levels but is still learning how to use her short-acting insulin. She also reports feeling her "legs becoming dehydrated", and becoming dehydrated had previously caused her to lose some vision in her R eye. In 2014 she had a PA w/ two stents being placed. In 2006 she had a self diagnosed "stroke in both eyes." Nursing Notes Stated Complaint: NAUSEA/VOMITING/DIARRHEA Chief Complaint: Female Abdominal Pain Nursing Notes Reviewed: Yes Allergies: Coded Allergies: insulin detemir (Verified Adverse Reaction, Severe, Nausea,Vomiting, ) Scheduled Aspirin Chew (Aspirin Chew) 81 Mg Tablet 81 MG PO DAILY Atorvastatin Calcium (Atorvastatin Calcium) 80 Mg Tablet 80 MG PO HS Atorvastatin Calcium (Atorvastatin Calcium) 40 Mg Tablet 40 MG PO HS Clopidogrel (Clopidogrel) 75 Mg Tablet 75 MG PO DAILY Fluoxetine (Fluoxetine) 20 Mg Tablet 20 MG PO DAILY Furosemide (Furosemide) 20 Mg Tab 20 MG PO QAM Gabapentin (Gabapentin) 400 Mg Capsule 400 MG PO BID Glipizide (Glipizide) 5 Mg Tablet 5 MG PO BID Insulin Glargine (Lantus U100 Insulin Vial) 100 Unit/Ml Vial 25 UNIT SUBQ HS Metoprolol Tartrate (Metoprolol Tartrate) 100 Mg Tablet 100 MG PO BID Ranitidine (Zantac) 150 Mg Tablet 150 MG PO BID Scheduled PRN Metoclopramide (Metoclopramide) 5 Mg Tablet 5 MG PO QID PRN PRN For Nausea Ondansetron ODT (Ondansetron ODT) 8 Mg Tab.rapdis 8 MG PO QID PRN PRN For Nausea General Time Seen by MD: 21:01 Chief Complaint Vomiting moderate Hx Obtained From: Patient Arrived By: Walk-in Sudden in Onset?: Yes Onset Occurred: More than a week ago... (2 weeks) Symptom Duration: Since onset Recent Healthcare: Recent doctor visit, Recent hospitalization Similar Sx Previous: Yes Past Medical History Past Medical History Notes: Hospitalized 08/16/15 to 08/18/15: Chest pain in patient with history of CAD, s/p CARLA placement June 2015 - Troponin neg x2 - Stress test 08/16/2015; unremarkable; no evidence of ST-T changes, ischemia, or wall motion abnormalities - Tele monitoring; no events Past Medical History Peripheral neuropathy NSTEMI CVA- 2006 (March and August) DM2 insulin dependent - history of KDA depression/anxiety insomnia Reports: Congestive heart failure, Coronary artery disease, GERD, Hyperlipidemia , Hypertension, Stroke Reports: Depression, Renal failure Past Surgical History Cardiac Catheterization Hysterectomy R knee- arthroplasty Smoking History Former Smoker Social History Patient quit smoking cigarretes 1.5 years ago. She continues to smoke marijuana. Alcohol Use: Denies alcohol use Other Social History: Good social support, , Local resident Ambulatory Status Independent Review of Systems Dehydration Cardiovascular: Reports: Chest pain (L sided ) GI: Reports: Nausea, Vomiting Complete sys rev & neg: except as marked. Eyes: Reports: Visual loss right Physical Exam Vital Signs Vital Signs (First) Date Time Temp Pulse Resp B/P Pulse Ox O2 Delivery O2 Flow Rate FiO2 03/16/17 20:22 37.0 110 14 215/97 98 Room Air Initial VS: Reviewed General/Constitutional: Awake, Alert Respiratory / Chest: Atraumatic, Breath sounds NL, Breath sounds = bilat, No respiratory distress, No rales, No rhonchi, No wheezing Cardiovascular: Regular rhythm, Heart sounds NL Heart Rate / Rhythm: Positive: Tachycardia Abdomen: Atraumatic, Soft, Non-tender Back: Atraumatic, Full range of motion Head / Eyes: Atraumatic, Normocephalic ENT: Airway patent Mouth: Positive: Mucous membranes dry Skin: Atraumatic, Color NL, No rash, Warm, Dry Neurologic: Oriented X3, Speech NL Neck: Atraumatic, Supple, Full range of motion Upper Extremity / MS: Atraumatic, Full range of motion Lower Extremity / Pelvis / MS: Atraumatic, Full range of motion Psychiatric: Mood NL Abnormal Mood/Affect: Positive: Anxious Interpretation & Diagnostics Lab Results Interpretation Result Diagram: 03/16/17204403/16/172044 Test 03/16/17 20:45 03/16/17 21:49 03/16/17 23:35 White Blood Count 10.4th/mm3 (3.8-10.1) Red Blood Count 5.15mil/mm3 (3.90-5.20) Hemoglobin 13.5g/dL (12.0-15.6) Hematocrit 40.5% (35.0-46.0) Mean Corpuscular Volume 78.6fL (81-100) Mean Corpuscular Hemoglobin 26.2pg (27.0-35.0) Mean Corpuscular Hemoglobin Concent 33.3% (32.0-37.0) Red Cell Distribution Width 14.0% (12.3-15.4) Platelet Count 280bil/L (150-400) Neutrophils (%) (Auto) 73.0% (40-74) Lymphocytes (%) (Auto) 18.6% (14-46) Monocytes (%) (Auto) 5.7% (4-12) Eosinophils (%) (Auto) 1.6% (0-5) Basophils (%) (Auto) 0.9% (0-3) Hold Purple Top Tube Received (Received) Prothrombin Time 10.1sec (8.1-12.5) Prothromb Time International Ratio 0.95ratio Hold Blue Top Tube Received (Received) Sodium Level 138mEq/L (134-144) Potassium Level 4.4mEq/L (3.5-5.2) Chloride Level 96mEq/L (97-108) Carbon Dioxide Level 24mmol/L (18-29) Blood Urea Nitrogen 19mg/dL (6-24) Creatinine 1.00mg/dL (0.57-1.00) Estimat Glomerular Filtration Rate 82mL/min (>59) Glucose Level 229mg/dL (60-99) Calcium Level 10.4mg/dL (8.5-10.1) Magnesium Level 1.8mg/dL (1.6-2.6) Total Bilirubin 0.5mg/dL (0.0-1.2) Aspartate Amino Transf (AST/SGOT) 22U/L (0-50) Alanine Aminotransferase (ALT/SGPT) 15U/L (0-32) Alkaline Phosphatase 140U/L (25-150) Total Protein 8.3g/dL (6.4-8.4) Albumin 4.6g/dL (3.4-5.0) Lipase 23U/L (13-60) Hold Red Top Tube Received (Received) Hold [place] Top Tube Received (Received) Hold [place] Top Tube Received (Received) Urine Color Straw (YELLOW) Urine Appearance Hazy (CLEAR,HAZY) Urine pH 5.5 (5.0-8.0) Urine Specific University 1.015 (1.003-1.035) Urine Protein 100mg/dL (NEG,TRACE) Urine Glucose (UA) 100mg/dL (NEGATIVE) Urine Ketones Negativemg/dL (NEGATIVE) Urine Occult Blood Small (NEGATIVE) Urine Nitrite Negative (NEGATIVE) Urine Bilirubin Negative (NEGATIVE) Urine Urobilinogen Normalmg/dL (NORMAL) Urine Leukocyte Esterase Negative (NEGATIVE) Urine RBC 0-2/hpf (0-2) Urine WBC 0-5/hpf (0-5) Urine Epithelial Cells Moderate/hpf (NONE-MOD) Urine Crystals None seen (NONE SEEN) Urine Bacteria Many/hpf (NONE-FEW) Urine Hyaline Casts Occasional/lpf (NONE) Urine Granular Casts None seen (NONE SEEN) Urine Waxy Casts None seen (NONE SEEN) Urine Red Blood Cell Casts None seen (NONE SEEN) Urine White Blood Cell Casts None seen (NONE SEEN) Urine Mucus None seen (None Seen) Urine Trichomonas None seen (NONE SEEN) Urine Yeast None (NONE SEEN) Urinalysis Comment None Urine Culture Reflexed Indicated Troponin T < 0.010ug/L (0.0-0.011) ECG Interpretation ECG Interpretation: Rate 101 Sinus tachycardia Time: 21:24 Interpreted by: ED physician ECG Interpretation: Rate 101 Sinus tachycardia Time: 23:24 Interpreted by: ED physician Re-Eval/Medical Decision Med Decision/Clinical Course 56-year-old female with diabetes and gastroparesis presents with nausea and vomiting now resolved with medication here. She is taking by mouth fluids again and is managed to keep down her prescribed medicines. She is discharged now with Zofran for home use in addition to her metoclopramide. Her labs were reassuring and basically normal. No evidence of EKG changes or troponin elevation 2 serial determinations. Counseled Regarding: Diagnosis, Lab results, Need for follow-up, When/why to return to ED Discharge & Departure Primary Impression: Vomiting Vomiting type: unspecified Vomiting Intractability: unspecified Nausea presence: with nausea Qualified Code: R11.2 - Nausea with vomiting, unspecified Additional Impression: Gastroparesis Disposition: Home Discharge Condition All VS Reviewed: Yes Condition: Stable Additional Instructions: Your evaluation today included labs, EKG, and physical exam. We did not find any signs of a heart attack. We did not find any signs of infection or inflammation of the gallbladder, pancreas, or liver. You most likely have a worsening of your gastroparesis, as well as dehydration. We are giving you additional medications to decrease your nausea and vomiting. Follow-up with Dr. Nelson in 2-3 days to discuss further evaluation and treatment of your gastroparesis and diabetes. You can call Gastro[facility]ology ( [facility]) to schedule an appointment. You may use Zofran up to four times daily as needed for nausea, to enable you to keep her medicines down, and to maintain hydration. Referrals: Brigitte Nelson MD (PCP) Scribe Attestation Portions of this note were transcribed by Dex Griffin. I, Dr. Katz personally performed the history, physical exam and medical decision-making; I reviewed and confirmed the accuracy of the information in the transcribed note. Signed by : Ruperto Calderon, 03/16/17 and 2239. copies to: Brigitte Nelson MD, Christopher W MD Mar 16, 2017 21:02 Dex Griffin Mar 16, 2017 22:37
[2017-03-16 21:13] VITALS: BP 201/99; PULSE 101; RESP 13; O2SAT 99
[2017-03-16] MEDS ORDERED: 0.9% Sodium Chloride 1,000 ML IV ONE ×2 (21:16→23:20)
[2017-03-16] MEDS ORDERED: MetoCLOpramide 5 mg/mL 2 mL Inj IVPUSH ONE (21:20)
[2017-03-16] MEDS ORDERED: Ondansetron 2 mg/mL 2 mL Inj IVPUSH ONE (21:20)
[2017-03-16 21:25] LABS: BASOPHILS % (AUTO) 0.9 % (0-3); EOSINOPHILS % (AUTO) 1.6 % (0-5); MONOCYTES % (AUTO) 5.7 % (4-12); Mean Corpuscular Hemoglobin 26.2 pg (27.0-35.0); Mean Corpuscular Volume 78.6 fL (81-100); Platelet Count 280 bil/L (150-400)
[2017-03-16 21:28] LABS: INR 0.95 ratio
[2017-03-16 21:34] LABS: Magnesium 1.8 mg/dL (1.6-2.6)
[2017-03-16 22:13] LABS: APPEARANCE,URINE HAZY (CLEAR,HAZY); COLOR,URINE STRAW (YELLOW); OCCULT BLOOD,URINE SMALL (NEGATIVE); PH,URINE 5.5 (5.0-8.0); UROBILINOGEN,URINE NORMAL (NORMAL)
[2017-03-17] MEDS ORDERED: ONDA8TAB10 PO ×2 (00:31→00:33)
[2017-03-17 01:17] VITALS: BP 184/98; PULSE 60; RESP 16; O2SAT 98
[2017-03-17] MEDS ORDERED: ProchlorPERazine 5 mg/mL 2 mL Inj IVPUSH ONE (01:45)
[2017-03-17] MEDS ORDERED: Famotidine Inj 20 MG in IV Premix 1 EACH IV ONE (01:50)
[2017-03-17] MEDS ORDERED: 0.9% Sodium Chloride 50 ML ONE (01:50)
[2017-03-17 03:01] VITALS: BP 145/88; PULSE 111; RESP 17; O2SAT 98
== END 2017-03-17 03:03 | disposition home or self-care (01) ==
LOC: EDSEX 20:06 → SED 20:06 → EDBD 20:06 → SED 03-17 03:03
DX: E11.43 Type 2 diabetes mellitus with diabetic autonomic (poly)neuropathy (principal); K31.84 Gastroparesis; I13.0 Hypertensive heart and chronic kidney disease with heart failure and stage 1 through stage 4 chronic kidney disease, or unspecified chronic kidney disease; I50.9 Heart failure, unspecified; N19 Unspecified kidney failure; I25.10 Atherosclerotic heart disease of native coronary artery without angina pectoris; I25.2 Old myocardial infarction; Z86.73 Personal history of transient ischemic attack (TIA), and cerebral infarction without residual deficits; Z87.891 Personal history of nicotine dependence; Z79.4 Long term (current) use of insulin; Z79.82 Long term (current) use of aspirin; Z88.8 Allergy status to other drugs, medicaments and biological substances
CPT/HCPCS: 36415; 80053; 81000; 83690; 83735; 84484; 85025; 85610; 87086; 87088; 93005; 96361; 96374; 96375; 99285; J0780; J2405; J2765; J3490; J7030